=== PATIENT | male | born 1950 | race Caucasian/White ===

== ENCOUNTER 2018-11-18 07:28 | Day surgery (SDC) | payer MEDICARE, OTHER ==
[~2018-11-18] VITALS: Ht 165.1 cm; Wt 79.5 kg
[~2018-11-18 07:28] MED LIST: ACET325; ALPR.25; ALPR.25 PO; DULO30; DULO60 PO; FISH OIL 1,2001 EACH PO; Fish Oil 10001000 MG; LEVO-T50 MCG; LEVSOD50 PO; LOSA25; LOSA25 PO; METO100ER; METO100ER PO; Simvastatin20 MG; Simvastatin20 MG PO; Toprol Xl50 MG PO; WARF2; WARF2 PO
[2018-11-18] MEDS ORDERED: METF500C PO (08:25)
--- NOTE | 2018-11-18 11:27 | NUR ---
11/18/18 Madelaine Bueno PATIENT HAS REMAINED HYPOTENSIVE, NS RUNNING W/O HOB FLAT WITH BP 89/55. NOW UP TO 103/59. PATIENT REMAINS AWAKE ALERT RESP UNLABORED, DENIES PAIN OR NAUSEA.
--- NOTE | 2018-11-18 12:09 | NUR ---
11/18/18 Fabiola8 Melanie Sadler PT TRANSFERED FROM BED TO CHAIR WELL WITH STAND BY ASSIST. PT DENIES ANY PAIN. VS WNL. PT TOLERATING SNACKS WELL. FAMILY AT CHAIR SIDE. WILL COTINUE TO MONITOR PT.
== END 2018-11-18 12:32 | disposition home or self-care (01) ==
LOC: ORSCSDS 07:28
PROVIDERS: Orthopaedic Surgery
PROC: 0LN70ZZ Release Right Hand Tendon, Open Approach (ICD-10-PCS; principal; 2018-11-18 09:00)
PROC: 0JNJ0ZZ Release Right Hand Subcutaneous Tissue and Fascia, Open Approach (ICD-10-PCS; principal; 2018-11-18 09:00)
DX: M72.0 Palmar fascial fibromatosis [Dupuytren] (principal); I10 Essential (primary) hypertension; E11.9 Type 2 diabetes mellitus without complications; I48.91 Unspecified atrial fibrillation; Z79.01 Long term (current) use of anticoagulants; F41.9 Anxiety disorder, unspecified; Z79.899 Other long term (current) drug therapy
CPT/HCPCS: 82947; 88304; J0690; J1100; J2250; J2370; J2405; J3010; J7120

== ENCOUNTER 2019-01-06 10:27 | Inpatient (IN) | payer MEDICARE, OTHER ==
[~2019-01-06] VITALS: Ht 162.6 cm; Wt 81.4 kg
[~2019-01-06 10:27] MED LIST changes: +METF500C PO
--- NOTE | 2019-01-06 15:50 | NUR ---
PT ARRIVAL: PT ARRIVED VIA BED. REC'D REPORT FROM YANELY BAÑUELOS. PT IS NOT CURRENTLY ON ANY SEDATION. NO PURPOSEFUL MOVEMENT SEEN. PT HAS AMIODARONE GTT AT 1MG/MIN AND LEVOPHED @ 20MCG/MIN. PUPILS 5MM, NON-REACTIVE ON RT SIDE, MINIMAL ACCOMODATION ON THE LT SIDE. LUNGS CLEAR BILATERALLY. 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 VENT SETTINGS: AC-24, TV-500, P-5, [id number]%. 02 SATS >90%. HR REGULAR, SB-50'S RANGE. BALLON PUMP IN PLACE, ON 1:1 TIMING WITH GOOD WAVEFORM IN RT FEMORAL. ARTERIAL LINE IN RT RADIAL, ZERO'D W/GOOD WAVEFORM. PT HAS [address] TO LT FEMORAL WITH AMIODARONE/LEVOPHED INFUSING AT THIS TIME. PT CONTINUES TO BE HYPOTENSIVE WITH MAPS IN THE 40'S RANGE, WILL START EPI GTT ONCE IT ARRIVES. WILL BE PLACING PICC LINE FOR ADD'L ACCESS FOR EPI/LEVO GTT. ABD IS SOFT/ROUND/NON-TENDER WITH HYPOACTIVE BT'S X4 QAUDS. NO NORRIS PRESENT, NO URINE OUTPUT AT THIS TIME. -PT REMAINS FULL CODE STATUS PER PT'S . -PT'S UPDATED WITH PT'S STATUS.
[2019-01-06 16:45] LABS: BASOPHILS ABSOLUTE AUTO 0.16 K/mm3 (0.00-0.23); BASOPHILS PERCENT AUTO 1 % (0-2); EOSINOPHILS ABSOLUTE AUTO 0.12 K/mm3 (0.00-0.68); EOSINOPHILS PERCENT AUTO 1 % (0-6); Hematocrit 40.6 % (37.0-53.0); Hemoglobin 12.7 g/dL (13.5-17.5); IMMATURE GRAN ABSOLUTE AUTO 0.99 K/mm3 (0.00-0.10); IMMATURE GRAN PERCENT AUTO 4 % (0-1); LYMPHOCYTES ABSOLUTE AUTO 4.57 K/mm3 (0.84-5.20); LYMPHOCYTES PERCENT AUTO 19 % (21-46); MONOCYTES PERCENT AUTO 2 % (4-13); Mean Corpuscular HGB 31.6 pg (26.0-34.0); Mean Corpuscular HGB Conc 31.3 g/dL (31.5-36.5); Mean Platelet Volume 9.7 fL (9.1-12.4); NEUTROPHILS ABSOLUTE AUTO 17.89 K/mm3 (1.96-9.15); NEUTROPHILS PERCENT AUTO 74 % (41-73); NRBC ABSOLUTE 0.03 K/mm3 (0.00-0.02); NRBC Auto 0.1 /100 WBC (0.0-0.2); Platelet Count 125 K/mm3 (150-400); RDW Coefficient Variation 13.2 % (11.7-14.2); RDW Standard Deviation 49.7 fL (35.1-46.3); Red Blood Cell Count 4.02 M/mm3 (4.30-5.90); White Blood Cell Count 24.13 K/mm3 (4.00-11.30)
--- NOTE | 2019-01-06 16:45 | NUR ---
PETE GALLEGOS IN TO ASSESS PT. AWAITING CXR AND ABG TO BE DONE. CALLED RADIOLOGY FOR CXR AND RT FOR ABG.
[2019-01-06 16:47] LABS: Mean Corpuscular Volume 101 fL (80-100)
[2019-01-06 17:04] LABS: PCO2 Arterial 35.8 mmHg (35-45); PO2 Arterial 229 mmHg (80-100); pH Blood Arterial 7.19 (7.35-7.45)
[2019-01-06 17:15] LABS: International Normalized Ratio 1.51; Prothrombin Time Results 15.4 Sec (9.7-11.5)
--- NOTE | 2019-01-06 17:30 | NUR ---
PT STARTED DECEREBRATE POSTURING IN BILATERAL UE'S.
[2019-01-06 17:59] LABS: Albumin, Blood 2.8 g/dL (3.4-5.0); Albumin/Globulin Ratio 0.9 (0.8-1.8); Bilirubin, Total 0.6 mg/dL (0.1-1.0); Calcium, Blood 9.1 mg/dL (8.5-10.1); Creatinine, Blood 1.31 mg/dL (0.60-1.20); Magnesium, Blood 4.6 mg/dL (1.6-2.4); Potassium, Blood 5.3 mmol/L (3.5-5.5); Total Protein, Blood 5.8 g/dL (6.4-8.2)
--- NOTE | 2019-01-06 18:00 | NUR ---
NORRIS CATHETER PROVED TO BE DIFFICULT TO PLACE. THIS RN ABLE TO PLACE A 16F COUDE CATHETER. PT DRAINED A SMALL AMT OF CLEAR, YELLOW URINE TO GRAVITY. PT APPEARED TO START POSTURING IN BILATERAL LE'S, HOWEVER, PT WOULD DRAW RT KNEE FARTHER UP THAN LT. LE'S PLACED IN BILATERAL RESTRAINTS AT THIS TIME TO PROTECT BALLON PUMP AND SHEATH SITES.
--- NOTE | 2019-01-06 18:15 | NUR ---
DR FAIR AT THE BEDSIDE. UPDATED HIM ON PT'S STATUS. REPORTED THAT BOTH LEVOPHED AND AMIODARONE ARE OFF AND PT IS NOW HYPERTENSIVE. STARTED PROPOFOL FOR COMFORT AND WILL MONITOR IF THIS HELPS WITH THE HTN, IF NOT, WILL CALL DR FAIR FOR FURTHER TX ORDERS.
[2019-01-06 18:29] LABS: Phosphorus, Blood 9.2 mg/dL (2.5-4.9); Troponin I 19.3 ng/mL (0.000-0.040)
--- NOTE | 2019-01-06 18:50 | NUR ---
Spiritual Care: I was present with pt's spouse, Edna, throughout code blue, medical interventions, and transfer to ICU. She was appropriately tearful and panicked. Per Edna, "We were just supposed to have this little proceedure don and go home a few hours later." This event took her completely by surprise. I provided calm presence, prayer, and ran back and forth from waiting area to monitor area for updates. I was present when physicians met with Edna. She was told of Raul's serious prognosis in detail. That said, I suspect Edna did not retain much information after being told that Raul's heart "was beating on its own and his blood pressure is better." I suspect she is understandably in shock, and may benefit from on-going, clear clinical updates/potential outcomes. Edna is not active in her [employer] nelson, but seemed calmed by prayer and spiritual encouragement. Raul is not jew at all. Their sons are on their way from [place], [place] and should be arriving soon. Enda tells me they are good support. Break Off Worker Services will remain available.
--- NOTE | 2019-01-06 19:00 | NUR ---
SHIFT SUMMARY/REPORTED OFF: PT IS AT THIS TIME FREQUENTLY DECEREBRATE POSTURING IN UE'S AND DRAWING UP BILATERAL KNEES AT THE SAME TIME, OTHERWISE, NO PURPOSEFUL MOVEMENT. PT IN 4 POINT RESTRAINTS TO PROTECT VITAL LINES. PUPILS UNCHANGED FROM PRIOR NOTED. CRITICAL LABS REPORTED TO DR CASAS PER ALEE, RN. WILL CHECK VBG AT THE SAME TIME LACTIC ACID REFLUX IS DONE. REMAINS AT THE BEDSIDE AND IS AWARE OF THE SEVERITY OF PT'S CONDITION BUT REMAINS HOPEFUL AT THIS TIME. PT BECAME HYPERTENSIVE QUICKLY WITH USE OF LEVOPHED/EPI AND REMAINED HYPERTENSIVE, EVEN AFTER THESE WERE PLACED ON STANDBY. PT STARTED ON PROPOFOL IN CASE HTN R/T PAIN/DISCOMFORT. PT QUICKLY BECAME HYPOTENSIVE AND REQUIRED EPI GTT TO BE RESTARTED AT THIS TIME AND INCREASED TO 5MCG/MIN, TO KEEP MAP >[address] FA[address]. BALLON PUMP REMAINS IN RT FEMORAL WITH 1:1 TIMING (SEE FLOWSHEET). PICC LINE IN THE LT UA AND 2 FEMORAL SHEATH SITES ARE STARTING TO OOZ BLOOD. NORRIS CATH ONLY DRAINED A MINIMAL AMT OF CLEAR YELLOW URINE SINCE PLACEMENT. CONTINUE TO MONITOR R/T DIFFICULT PLACEMENT. NO BM FOR THIS RN.
--- NOTE | 2019-01-06 19:15 | NUR ---
ASSESSMENT PT INTUBATED AND ON [facility] V[facility]. SEDATED WITH PROPOFOL AT 15 MCQ/KG/MIN. VENT SETTINGS AC 24 TV 500 PEEP 5 FIO2 70%. LUNGS COARSE AND DECREASED IN THE BASES. RT SUCTIONED SCANT AMT THICK BLOODY SECRECTIONS VIA ET TUBE. HEART RATE REGULAR IN THE 60'S. PT ON IABP VIA RIGHT GROIN ACCESS. RIGHT GROIN STABLE WITH DRSG INTACT. BP STABLE ON EPI TITRATE TO KEEP MAP ABOVE 65. CURRENTLY EPI AT 5 MCQ/MIN. LEVOPHED ON STANDBY. LEFT GROIN WITH TWO VENOUS SHEATS WITH HEPARIN AT 12 UNITS/KG/HR AND LEVOPHED ON ONE WITH AMIODARONE AT 1 MG/MIN AND EPINEPHRINE AT 5MCQ/MIN. SITE STABLE WITH DRSG INTACT. SMALL ABOUT OF OOZING AT SITE. PICC LINE TO LEFT UPPER ARM WITH PROPOFOL AT 15 MCK/KG/MIN AND NS AT 10 ML/HR. SITE WITH BLOODY DRAINAGE AND PRESURE DRSG INTACT. NORRIS CATH PATENT DRAINING CLEAR YELLOW URINE. OG CLAMPED. PEDAL PULSES VERY FAINT VIA DOPPLER. FEET COOL. SOFT RESTRAINTS ON TIMES 4. PT POSTERING. PUPILS VERY SLUGGLISH. AND FRIEND AT BEDSIDE
[2019-01-06 20:33] LABS: Source, Urine Catheter
[2019-01-06 20:38] LABS: Appearance, Urine Hazy (Clear); Bilirubin, Urine Neg (Neg); Blood, Urine 4+ (Neg); Color, Urine Yellow (P-Yellow); Glucose Qualitative, Urine Neg (Neg); Ketones, Urine Neg (Neg); Leukocyte Esterase, Urine Neg (Neg); Nitrite, Urine Neg (Neg); Protein, Urine 3+ (Neg); Urobilinogen, Urine NORM (Normal)
[2019-01-06 20:51] LABS: Squamous Epithelial Cells Mod /hpf (Few)
[2019-01-06 20:52] LABS: Amorphous Mod (0-Heavy); Bacteria Few /hpf; Granular Casts 0-2 /lpf (0); Mucus Light (0-Heavy)
[2019-01-06 21:31] LABS: Base Excess Venous -10.6 mmol/L; Bicarbonate Venous 15.4 mmol/L (24.0-30.0); PCO2 Venous 43.3 mmHg (38-42); PO2 Venous 25.1 mmHg (38-42); pH Blood Venous 7.21 (7.34-7.37)
--- NOTE | 2019-01-06 21:44 | NUR ---
CALL TO MD'S CALL TO DR DAILY REGARDING AMIODARONE GTT. ORDERS TO DECREASE AMIODARONE TO 0.5 MG/MIN FOR [address] CASAS REGARDING VBG PH 7.21, NO NEW ORDERS.
--- NOTE | 2019-01-06 22:07 | NUR ---
FAMILY/ HEPARIN FAMILY WENT HOME FOR THE NIGHT. CRITIACAL PTT 103.3 CALLED TO NAZIA POOLE IN PHARMACY, WAITING FOR ORDERS. RECEIVED CRITICAL LACTIC ACID WILL NOTIFY DR CASAS
--- NOTE | 2019-01-06 22:25 | NUR ---
CRITICAL LAB DR CASAS NOTIFIED REGARDING LACTIC ACID 10.2 AND POOR URINE OUTPUT. NO NEW ORDER NOW EXCEPT REPEAT LACTIC ACID IN AM. TITRATE EPI AND LEVOPHED TO KEEP MAP ABOVE 65
--- NOTE | 2019-01-07 00:01 | NUR ---
REASSESSMENT PT CONT INTUBATED AND ON [facility] VENT. CURRENT VENT SETTINGS AC 24 TV 500 PEEP 5 FIO2 55%. LUNGS CLEAR BUT DECREASED IN THE BASES. NO SECRECTIONS SUCTIONED VIA ET TUBE. HEART RATE 66, BP STABLE WITH EPI AT 5 MCQ/MIN. RIGHT GROIN IABP SITE STABLE WITH DRSG INTACT. LEFT GROIN WITH VENOUS SHEATHS TIMES TWO STABLE, SCANT AMT OF OLD DRAINAGE NOTED. FEET COOL. PEDAL PULES VERY WEAK VIA DOPPLER. POSTERING CONT, INCREASES WITH STIMULI. YAWNS WITH ORAL CARE. NOTED FOLLOWING INSTRUCTIONS. ONLY 42 ML URINE OUTPUT SINCE 1900. SCLERAL EDEMA NOTED.
--- NOTE | 2019-01-07 01:27 | NUR ---
CALL TO DR FAIR CALLED DR FAIR REGARDING CRITICAL TROPONIN OF 143 AND 42 ML OF URINE OUT SINCE 190. REVIEWED BP AND MEDICATIONS. RECEIVED ORDER TO TITRATE EPI DOWN TO KEEP SBP ABOUT 120. EPI DECREASED TO 4 MCQ/MIN. RT DECREASED FIO2 DOWN TO 50%
[2019-01-07 03:09] LABS: BASOPHILS ABSOLUTE AUTO 0.06 K/mm3 (0.00-0.23); BASOPHILS PERCENT AUTO 0 % (0-2); EOSINOPHILS PERCENT AUTO 0 % (0-6); Hematocrit 34.5 % (37.0-53.0); Hemoglobin 11.2 g/dL (13.5-17.5); IMMATURE GRAN ABSOLUTE AUTO 0.18 K/mm3 (0.00-0.10); IMMATURE GRAN PERCENT AUTO 1 % (0-1); LYMPHOCYTES ABSOLUTE AUTO 1.57 K/mm3 (0.84-5.20); LYMPHOCYTES PERCENT AUTO 7 % (21-46); MONOCYTES ABSOLUTE AUTO 1.57 K/mm3 (0.16-1.47); MONOCYTES PERCENT AUTO 7 % (4-13); Mean Corpuscular HGB 31.6 pg (26.0-34.0); Mean Corpuscular HGB Conc 32.5 g/dL (31.5-36.5); Mean Platelet Volume 9.6 fL (9.1-12.4); NEUTROPHILS ABSOLUTE AUTO 18.54 K/mm3 (1.96-9.15); NEUTROPHILS PERCENT AUTO 85 % (41-73); Platelet Count 145 K/mm3 (150-400); RDW Coefficient Variation 13.5 % (11.7-14.2); RDW Standard Deviation 48.7 fL (35.1-46.3); Red Blood Cell Count 3.54 M/mm3 (4.30-5.90); White Blood Cell Count 21.92 K/mm3 (4.00-11.30)
[2019-01-07 03:12] LABS: Mean Corpuscular Volume 98 fL (80-100)
[2019-01-07 03:33] LABS: Magnesium, Blood 3.4 mg/dL (1.6-2.4)
[2019-01-07 03:38] LABS: Thyroid Stimulating Hormone 2.7 uIU/mL (0.360-4.800)
[2019-01-07 03:46] LABS: Albumin, Blood 2.6 g/dL (3.4-5.0); Bilirubin, Total 0.4 mg/dL (0.1-1.0); Bun/Creatinine Ratio 10.9 (12.0-20.0); Calcium, Blood 8.1 mg/dL (8.5-10.1); Creatinine, Blood 2.58 mg/dL (0.60-1.20); Globulin, Blood 2.6 g/dL (2.2-4.0); Potassium, Blood 3.7 mmol/L (3.5-5.5); Total Protein, Blood 5.2 g/dL (6.4-8.2)
[2019-01-07 03:48] LABS: Phosphorus, Blood 2.7 mg/dL (2.5-4.9)
--- NOTE | 2019-01-07 04:09 | NUR ---
REASSESSMENT PT CONT INTUBATED AND MECH VENTED. VENT SETTINGS CURRENTLY AC 24 TV 500 PEEP 5 FIO2 45%. LUNGS CLEAR BUT DECREASED IN BASES. HEART RATE 60'S. BP STABLE ON EPI AT 5 MCQ/MIN. TITRATING EPI DOWN TO KEEP SBP AROUND 120. NO URINE OUTPUT. RIGHT AND LEFT GROIN SITES STABLE. OOZING AT PICC SITE AFTER DRSG CHANGED.
[2019-01-07 04:40] LABS: PCO2 Arterial 21.2 mmHg (35-45); PO2 Arterial 91.4 mmHg (80-100); pH Blood Arterial 7.45 (7.35-7.45)
--- NOTE | 2019-01-07 05:58 | NUR ---
SHIFT SUMMARY PT REMAINS INTUBATED AND ON [facility] VENT. FIO2 TITRATED DOWN DURING THE NIGHT FROM 70% TO CURRENTLY AT 40%. SPO2 REMAINS 98-100%. CURRENT VENT SETTINGS AC 24 TV 500 PEEP 5 FIO2 40%. LUNGS STARTED COARSE BUT HAVE IMPROVED TO CLEAR BUT DECREASED IN THE BASES. SUCTIONED SCANT AMT SECRECTIONS VIA ET TUBE. HEART RATE REMAINS IN THE 60'S. PT WITH IABP PUMP TO RIGHT FEMORAL. IABP 1:1 TIMING. TITRATING EPI AND LEVOPHED TO KEEP SBP AROUND 120 AND MAP >[address] FAIR. CURRENTLY EPI AT 5 MCQ/MIN AND LEVOPHED OFF. LEFT FEMORAL WITH TWO VENOUS SHEATHS WITH AMIODARONE AT 0.5 MG/MIN. HEPARIN OFF AT THIS TIME AWAITING RESULTS OF PTT. POOR URINE OUTPUT 42 ML THROUGHOUT THE NIGHT, REPORTED TO DR CASAS AND DR FAIR. PICC LINE TO LEFT UPPER ARM DRSG CHANGED DUE TO BLEEDING, NEW DRSG WITH OOZING NOTED. BLOOD GLUCOSE Q6HR, COVERED WITH HUMALOG. REPORT TO ON COMING NURSE
--- NOTE | 2019-01-07 06:06 | NUR ---
SHIFT SUMMARY CONT PUPILS REMAIN SLUGGLISH BUT REACTIVE. PT MOVING RIGHT AND LEFT LOWER EXT INDEPENTLY AT TIMES. CONT TO HAVE DECEREBRATE POSTURING WITH ORAL CARE OR SUCTIONING. SCLERAL EDEMA NOTED. RESTRAINTS REMOVED. PT HAD SMALL BROWN PASTY STOOL DURING THE NIGHT.
--- NOTE | 2019-01-07 10:26 | NUR ---
0700-ASSUMED CARE OF PT. PT IS INTUBATED AND VENTED. PUPILS ARE NON-REACTIVE. NOT FOLLOWING COMMANDS. NOT OPENING EYES TO VOICE OR VERBAL STIMULI. BABINSKI REFLEX PRESENT. PT DID BEND HIS KNESS WHEN BABINSKI REFLEX ASSESSMENT WAS DONE. PT IS ON EPINEPHRINE @ 3 MCG/KG/MIN. LEVOPHED ON STANDY BY AT THIS TIME. AMIODARONE DRIP @ 0.5MG/MIN. AFEBRILE. EPINEPHRINE DRIP @ 3MCG/KG/MIN. 0709-DECREASED EPI DRIP TO 2MCG/KG/MIN. RESTARTED LEVOPHED DRIP@ 2MCG/KG/MIN 0745-DR. BHATIA AT BEDSIDE UPDATED HIM OF PT'S STATUS. 2 BEAT PAUSES WERE NOTED ON A-LINE AND BALLOON PUMP NO PAUSES NOTED ON RHYTHM STRIP. DR. BHATIA WAS NOTIFIED WITH THIS. TURNED OFF SEDATION AT THIS TIME. 0754-HEPARIN DRIP WAS RESTARTED AT THIS TIME @ 8UNITS/KG/HR. AMIODARONE DRIP WAS ALSO TURNED OFF PER DR. BHATIA. 0756-BALLOON PUMP WAS PLACED ON 2:[address] BHATIA. 0825-BALLOON PUMP WAS PLACED BACK TO 1:[address] BHATIA. HEPARIN DRIP WAS STOPPED PER DR. BHATIA. 0909-TITRATED LEVOPHED TO 1MCG/KG/MIN 0915-LEVOPHED DECREASED TO 0.5MCG/KG/MIN. 0936-TURNED OFF LEVOPHED AT THIS TIME. 1000-PT'S SON AT BEDSIDE. UPDATED THEM OF PT'S STATUS. 1017-SBP HAS BEEN FROM 160S-190S LEVOPHED AND EPI DRIP HAS BEEN OFF SINCE [address] CASAS IS AWARE OF THE ELEVATED SBP. PT WAS SEEN BY DR. CASAS AND DR. JOYNER. FAMILY AT BEDSIDE. DR. JOYNER SPOKE WITH THEM REGARDING P'TS PROGNOSIS.
--- NOTE | 2019-01-07 11:57 | NUR ---
Talked with Patient's 's son, in hallway and inquired how he and the family are holding up. Son stated that they are doing as good as can be expected under the circumstances and that they were all doing the best they can with what they are given at the moment. I normalized his experience and provided a calming presence. I will continue to remain available to patient and family.
--- NOTE | 2019-01-07 14:06 | NUR ---
Checked back in with patient's family. I talked with spouse Edna and sons Erasmo and Ankit. They all appeared to be quit hopeful and encouraged by the progress the patient is making this day. Edna was very complimentary of Apartment Assistant Manageryovana Travis, and so appreciated the time and care she gave to her in a very difficult time. I normalized the family experience, provided emotional support and a calming presence. Family responded well. I continue to remain available to patient and family.
[2019-01-07 14:07] LABS: PO2 Arterial 60.8 mmHg (80-100); pH Blood Arterial 7.52 (7.35-7.45)
[2019-01-07 14:08] LABS: PCO2 Arterial 18.9 mmHg (35-45)
--- NOTE | 2019-01-07 14:27 | NUR ---
1045-DR. BHATIA AT BEDSIDE. HE DISCONTINUED IABP AND APPLIED MANUAL PRESSURE. 1135-HEMEOSTATSIS ACHIEVED AT THIS TIME. FEM STOP AT R GROIN BUT NOT ACTIVATED. 1138- VENOUS SHEATH WAS DISCONTINUED BY DR. BHATIA WELL. THIS NURSE APPLIED 7 MINUTES OF PRESSURE TO THE VENOUS SIGHT. R GROIN STILL HAS FEM STOP IN PLACE AND NOT ACTIVATED. PULSES ARE DOPPLED. TOES & FINGERS ARE COOL TO TOUCH AND CAP REFILL NO CHANGE FROM INITIAL ASSESSMENT >3SECS SLIGHTLY PURPLE LOOKING. DR. BHATIA AWARE OF COLOR OF TOES.FACE LOOKS PINK COMPARED TO THIS MORNING. PT STARTED TO OPEN HIS EYES AT TIMES AND OPENS EYES TO VOICE AT TIMES. STILL NOT FOLLOWING COMMANDS. PT GRIMACES TO SUCTION. CORNEAL REFLEX PRESENT. 1305-TOOK THE UNACTIVATED FEMSTOP. PULSES STILL PRESENT NOTED BY DOPPLER. TOES COOLER HAS NOT CHANGED STILL THE SAME. WARM BLANKET GIVEN TO PATIENT. AFEBRILE. PT IS OPENING HIS EYES INTERMITTENTLY BUT NOT FOLLOWING COMMANDS. 1400-DR. CASAS AT BEDSIDE. UPDATED HER OF PT'S STATUS. 1405- DR. FAIR AT BEDSIDE, UPDATED HIM OF PT'S STATUS. HE DISCONTINUED ART- LINE AT THIS TIME. PLACE TR BAND WITH 8CC AIR INFLATED TO THE BALOON. WATCH FOR SIGNS OF BLEEDING OR HEMATOMA. ARM BAND IN PLACE. PULSES ARE PALPABLE.
--- NOTE | 2019-01-07 14:45 | NUR ---
DR. JOYNER AT BEDSIDE. UPDATED HIM OF PT'S STATUS.
--- NOTE | 2019-01-07 15:50 | NUR ---
1510-PT STARTED TO BE BLEEDING FROM THE R GROIN IABP ACCESS SITE. THIS WAS AFTER PT WAS COUGHING HARD. APPLIED MANUAL PRESSURE TO THE SITE. NOTIFIED DR. BHATIA HE ORDERED TO DO 20 MIN MANUAL IF BLEEDING DOES NOT STOPPED. THEN CALL HIM AGAIN. 1530-HEMEOSTASIS ACHIEVED. TOTAL MANUAL PRESSURE APPLIED WAS 20MINS. 1534-DECREASED 2 CC AIR FROM TR BAND. DR. BHATIA CALLED BACK REGARDING R GROIN BLEEDING. HE WAS NOTIFIED HEMEOSTASIS WAS ACHIEVED AT 20 MINS. CONITNUED TO MONITOR R GROIN. LEFT GROIN ACCESS SITE STABLE. 1550-PT'S CHERYL AT BEDSIDE. UPDATED HER OF PT'S STATUS.
--- NOTE | 2019-01-07 17:04 | NUR ---
1651-NOTED R FINGERS ARE PALE AND COLD UNABLE TO GET O2 SATURATION. TR BAND IS COMPLETELY DEFLATED. REMOVED TR BAND AND REPLACED WITH CLEAR DRESSING. NO BLEEDING NOTED TO THE SITE. BRUISING NOTED. NO PULSE NOTED TO RADIAL ARTERY. NOTIFIED DR. BHATIA IMMEDIATELY. ORDERS RECEIVED. 1714- NOTICED R HAND FINGERS ARE NOW FROM PALE, WHITE TO PINK COLOR WITH O2 SATURATION CURRENTLY @ 96%
--- NOTE | 2019-01-07 17:23 | NUR ---
PT HAD AN EPISODE OF VOMITING, OG TUBE WAS CONNECTED TO LOW INTERMITTENT SUCTION. NOTED TO HAVE BROWN STOMACH CONTENTS CAME OUT. WILL HOLD OFF ON STARTING TUBE FEEDING AT THIS TIME.
--- NOTE | 2019-01-07 17:45 | NUR ---
DR. BHATIA CAME BY TO SEE THE PATIENT. UPDATED HIM OF PT'S R HAND CONDITION. HE CHECKED PT'S R HAND AND THEN R GROIN SITE. HE STATED TO HOLD OFF ON HEPARIN DRIP AT THIS TIME.
--- NOTE | 2019-01-07 19:15 | NUR ---
ASSUMED CARE OF PT PT INTUBATED, VENT SETTINGS AC 18/450/5/35%. OGT TO LIS. PT OPENS EYES TO PAINFUL STIMULUS BUT FAILS TO FOLLOW COMMANDS OR RESPOND TO VERBAL STIMULUS. NORRIS PATENT AND DRAINING PALE YELLOW URINE. FEMSTOP IN PLACE AND CLEAR DRESSING OVER RIGHT FEMORAL ACCESS SITE. HEMATOMA AND SIGNIFICANT BRUISING NOTED, PER DAYSHIFT NURSE NO CHANGE SINCE DR. FAIR LAST SAW IT. LEFT FEMORAL GROIN ACCESS SITE SOFT WITH CLEAR DRESSING, NO EVIDENCE OF BLEEDING. RIGHT RADIAL ACCESS SOFT WITH CLEAR DRESSING AND BRUISING NOTED. PEDAL PULSES PALPATED AND DOPPLER USED BILATERALLY. RIGHT RADIAL PULSE LOCATED WITH DOPPLER. PER DAYSHIFT NURSE PT'S HAS PERIODS OF POOR PERFUSION. PT'S FAMILY AT BEDSIDE. SEE FULL SHIFT ASSESSMENT. RADIAL PULSE NO EVIDENCE OF CURRENT BLEEDING
--- NOTE | 2019-01-07 19:55 | NUR ---
1846-PT STARTED TO BLEED TO R GROIN AGAIN. APPLIED PRESSURE AT THIS TIME. DR. BHATIA WAS NOTIFIED. SPOKE WITH DR. CASAS @ 1829 REGARDING PT'S R FINGERS WHICH STARTED TO BE LOOKING PALE AGAIN. SHE STATED TO RESTART THE HEPARIN DRIP. 1906-PLACED FEM STOP TO R GROIN AT THIS TIME. PULSES PRESENT BY DOPPLER WHILE FEM STOP IS ACTIVATED. 1919-DR. BHATIA AT BEDSIDE. ASSESSED R HAND AND R GROIN. HE STATED TO KEEP FEM STOP OVERNIGHT AND START HEPARIN DRIP @ 8 UNITS/KG/HR WEIGHT DOSE 79KG.
[2019-01-08 04:41] LABS: Base Excess Venous -5.4 mmol/L; Bicarbonate Venous 19.9 mmol/L (24.0-30.0); PCO2 Venous 32.6 mmHg (38-42); PO2 Venous 31.5 mmHg (38-42); pH Blood Venous 7.39 (7.34-7.37)
[2019-01-08 04:48] LABS: BASOPHILS ABSOLUTE AUTO 0.05 K/mm3 (0.00-0.23); BASOPHILS PERCENT AUTO 0 % (0-2); EOSINOPHILS PERCENT AUTO 0 % (0-6); Hematocrit 27.7 % (37.0-53.0); Hemoglobin 9.3 g/dL (13.5-17.5); IMMATURE GRAN ABSOLUTE AUTO 0.11 K/mm3 (0.00-0.10); IMMATURE GRAN PERCENT AUTO 1 % (0-1); LYMPHOCYTES ABSOLUTE AUTO 1.49 K/mm3 (0.84-5.20); LYMPHOCYTES PERCENT AUTO 7 % (21-46); MONOCYTES ABSOLUTE AUTO 1.51 K/mm3 (0.16-1.47); MONOCYTES PERCENT AUTO 7 % (4-13); Mean Corpuscular HGB Conc 33.6 g/dL (31.5-36.5); Mean Platelet Volume 11.2 fL (9.1-12.4); NEUTROPHILS ABSOLUTE AUTO 18.14 K/mm3 (1.96-9.15); NEUTROPHILS PERCENT AUTO 85 % (41-73); NRBC ABSOLUTE 0.06 K/mm3 (0.00-0.02); NRBC Auto 0.3 /100 WBC (0.0-0.2); Platelet Count 117 K/mm3 (150-400); RDW Standard Deviation 49.1 fL (35.1-46.3); Red Blood Cell Count 2.91 M/mm3 (4.30-5.90)
[2019-01-08 05:12] LABS: Albumin, Blood 2.5 g/dL (3.4-5.0); Albumin/Globulin Ratio 0.9 (0.8-1.8); Bilirubin, Total 0.5 mg/dL (0.1-1.0); Calcium, Blood 7.4 mg/dL (8.5-10.1); Creatinine, Blood 4.5 mg/dL (0.60-1.20); Globulin, Blood 2.9 g/dL (2.2-4.0); Magnesium, Blood 3.2 mg/dL (1.6-2.4); Potassium, Blood 5.1 mmol/L (3.5-5.5); Total Protein, Blood 5.4 g/dL (6.4-8.2)
[2019-01-08 05:16] LABS: Mean Corpuscular Volume 95 fL (80-100)
--- NOTE | 2019-01-08 05:50 | NUR ---
PER DR FAIR ORDER TO STOP HEPARIN, TAKE PRESSURE OUT OF FEMSTOP, AND START NS 100 ML/HR FOR 1 BAG.
[2019-01-08 05:52] LABS: Phosphorus, Blood 6.4 mg/dL (2.5-4.9)
--- NOTE | 2019-01-08 06:26 | NUR ---
SHIFT SUMMARY PT STABLE OVERNIGHT. NO NEW OR WORSENING BLEEDING NOTICED AT FEMORAL OR RADIAL ACCESS SITES. PEDAL PULSES PALPABLE, RADIAL PULSE FOUND VIA DOPPLER. PT OPENS EYES BUT FAILS TO TRACK OR FOLLOW COMMANDS. 500 ML BROWN/GREEN SECRETIONS OUT OF OGT. PT HAD 200 ML URINARY OUTPUT. WILL REPORT TO DAYSHIFT NURSE.
--- NOTE | 2019-01-08 09:34 | NUR ---
PT'S SON/MISHA IN THIS AM ALONG WITH DR MALONE WHOM UPDATED SON. PT SEDATED ON FENT 25MCG/HR AND VERSED GTT AT 1MG/HR FOR MECH VENT. PT MOVES ALL EXTREMETIES WITHOUT PURPOSE. AT ONE POINT DURING ORAL CARE PT APPEARED TO BE HAVING DECORTICATE POSTURING. PT GAGS, SWALLOWS, PROTECTS EYES BY BLINKING TO TOUCH, ABSENT BABINSKI REFLEX, PT WITHDRAWALS NORMALLY TO PLANTAR STIMULI. PUPILS 3/3MM VERY SLUGGISH;ALMOST ABSENT. PT CLAMMY AND DIAPHORETIC, PALE. POOR CAP REFILL TO ALL EXTREMETIES. RIGHT GROIN WITH LARGE HEMATOMA THAT EXTENDS INTO SCROTUM, AREA MARKED W PEN, SLIGHTLY OVER SOME OF THE LINE AT RIGHT HIP/GROIN; BUT NO CHANGE FROM THIS AM WHEN REVIEWED W CHRISTINE SPRAGUE.
--- NOTE | 2019-01-08 11:05 | NUR ---
DR CASAS IN TO SPEAK W PT'S SON'S AND TO ASSESS PT. VERSED DC'D. CT SCAN OF HEAD SCHEDULED FOR 1119
--- NOTE | 2019-01-08 12:18 | NUR ---
PT TO CT FOR CT OF HEAD; TOLERATED WELL. FENT INCREASED TO 50MCG CONT RATE FOR STACKING ON VENT PER DR CASAS. WHILE TURNING PT UPON AT 1200 PT BEGAN DEMONSTRATING DECORIBRATE POSTURING. DR CASAS AT BEDSIDE. VERSED GTT RESTARTED AT 2MG/HR, 2MG IVP OF VERSED GIVEN WELL; PT RESPONDED WELL TO THIS, AND NOW IS IN RELAXED SLEEPING STATE.
--- NOTE | 2019-01-08 12:27 | NUR ---
Initial Visit: Palliative Care Consult for Goals of Care. Pt is being attended to by his nurse Althea. Pt is intubated and Althea reports Pt is posturing, was seizing, and has no purposeful movement for quite some time. Althea reports family is in ICU waiting room. Pt's Edna and Pt's children are present in the waiting room. Engaged in therapeutic conversation regarding goals of care. Listened as Edna expressed her feelings towards wanting to do everything for Pt. Edna tearful at times during visit. Listened as Pt's children expressed their views of Pt's situation. Educated and children on Pt's current condition and prognosis. Children also tearful at times during visit. Offered emotion support throughout visit. Discussed code status as well with family. Educated family on risk factors of CPR as well. Family asks about quality of life for Pt if he does happen to improve. Educated on possible outcomes and possible need for 24 hour care. Pt's Edna reports that she knows what decision she will make but would like to know CT results from today and wait for the 72 hour douglas before making any decisions. Family is also agreeable with this. No other concerns reported at this time. Gave "Hard Choices for [place] People" book for family to read. Palliative Care will remain available.
--- NOTE | 2019-01-08 12:38 | NUR ---
PT HYPOTENSIVE WITH MAP AT 52. FENTANYL GTT DECREASED BACK TO 25MCG CONT. RATE; DR CASAS NOTIFIED
--- NOTE | 2019-01-08 12:52 | NUR ---
Late Entry from Initial Visit. Spoke with Dr Franz prior to visiting with family and he reports conversation regarding poor prognosis and code status is appropriate. Pt's will make a decision regarding code status after CT results.
--- NOTE | 2019-01-08 15:50 | NUR ---
TUBE FEEDING TO BE HELD TODAY 2ND TO ABSENT BOWEL TONES AND HIGH OG OUTPUT LAST NIGHT. PICC LINE DRSG CHANGED.
--- NOTE | 2019-01-08 16:49 | NUR ---
PT CONVERTED FROM SINUS RHYTHM W ECTOPY (PAC/PVC) TO AFIB W RATE 90-120. EKG COMPLETED. DR MALONE CALLED AND NOTIFIED. WILL CONTINUE TO MONITOR FOR NOW. WILL NOTIFY DR MALONE IF RATE INCREASES OR PT BECOME CONSIST. HYPOTENSIVE.
--- NOTE | 2019-01-08 17:19 | NUR ---
PT'S FAMILY AT BEDSIDE, UPDATED;INCLUDING NEW AFIB. DR WILKINSON CALLED FOR CONSULT. D51/2 NS TO BE STARTED AT 100CC/HR.
--- NOTE | 2019-01-08 19:22 | NUR ---
FAMILY AT BEDSIDE. BEDSIDE REPORT GIVEN. PT BECAME HYPOTENSIVE DURING REPORT AND REMAINS HYPOTENSIVE AT 67/35 WITH A MAP OF 40. AFIB REMAINS UNCHANGED W RATE 90-120. DR CASAS CALLED/NOTIFIED. ORDERS TO RESTART EPI GTT WHICH NOCT RN IS DOING NOW. FAMILY SAID THEY WOULD CONSIDER DNR STATUS, BUT FOR NOW THE PT REMAINS FULL CODE.
--- NOTE | 2019-01-08 20:48 | NUR ---
ASSUMED CARE OF PT PT SEDATED ON 2 MG/HR VERSED AND 25 MCG/HR FENTANYL. VENT SETTING AC 18/450/5/35%. PT IN UNRESPONSIVE TO VERBAL STIMULI AND FAILS TO FOLLOW COMMANDS BUT WITHDRAWS FROM PAINFUL STIMULI. PT BECAME HYPOTENSIVE AT START OF SHIFT, EPINEPHRINE STARTED PER DR CASAS. HR BETWEEN 70-130'S IRREGULAR. PT'S SKIN IS COOL AND CLAMMY WITH POOR PERFUSION NOTED. PT'S AT BEDSIDE. SEE FULL SHIFT ASSESSMENT.
--- NOTE | 2019-01-08 21:08 | NUR ---
CODE STATUS CHANGE. PT'S FAMILY REQUESTING TO CHANGE PT'S CODE STATUS TO DNR. AUGUSTO NOTIFIED AND STATUS CHANGE TO BE INPUT.
--- NOTE | 2019-01-09 01:22 | NUR ---
PT DEVELOPED WHEEZING THROUGHOUT WITH DIMINISHED IN BASES. DR HILLIARD CONSULTED AND PRN ALBUTEROL UPDRAFT ORDERED.
[2019-01-09 04:18] LABS: Base Excess Venous -7.9 mmol/L; Bicarbonate Venous 18.3 mmol/L (24.0-30.0); PCO2 Venous 34.1 mmHg (38-42); PO2 Venous 51.4 mmHg (38-42); pH Blood Venous 7.33 (7.34-7.37)
[2019-01-09 04:18] LABS: BASOPHILS ABSOLUTE AUTO 0.05 K/mm3 (0.00-0.23); BASOPHILS PERCENT AUTO 0 % (0-2); EOSINOPHILS PERCENT AUTO 0 % (0-6); Hematocrit 21.5 % (37.0-53.0); Hemoglobin 7.1 g/dL (13.5-17.5); IMMATURE GRAN ABSOLUTE AUTO 0.13 K/mm3 (0.00-0.10); IMMATURE GRAN PERCENT AUTO 1 % (0-1); LYMPHOCYTES PERCENT AUTO 6 % (21-46); MONOCYTES ABSOLUTE AUTO 1.37 K/mm3 (0.16-1.47); MONOCYTES PERCENT AUTO 7 % (4-13); Mean Corpuscular HGB 31.7 pg (26.0-34.0); Mean Corpuscular Volume 96 fL (80-100); Mean Platelet Volume 11.1 fL (9.1-12.4); NEUTROPHILS ABSOLUTE AUTO 16.44 K/mm3 (1.96-9.15); NEUTROPHILS PERCENT AUTO 86 % (41-73); NRBC ABSOLUTE 0.02 K/mm3 (0.00-0.02); NRBC Auto 0.1 /100 WBC (0.0-0.2); Platelet Count 99 K/mm3 (150-400); RDW Coefficient Variation 14.4 % (11.7-14.2); RDW Standard Deviation 50.5 fL (35.1-46.3); Red Blood Cell Count 2.24 M/mm3 (4.30-5.90); White Blood Cell Count 19.09 K/mm3 (4.00-11.30)
[2019-01-09 04:37] LABS: Alanine Aminotransfer (ALT/SGP 42 U/L (12-78); Albumin, Blood 2.2 g/dL (3.4-5.0); Albumin/Globulin Ratio 0.8 (0.8-1.8); Alk Phos 50 U/L (50-136); Anion Gap 12 mmol/L (6-16); Aspartate Aminotrans (AST/SGOT 316 U/L (12-37); Bilirubin, Total 0.3 mg/dL (0.1-1.0); Blood Urea Nitrogen 57 mg/dL (8-24); Bun/Creatinine Ratio 10.7 (12.0-20.0); CO2, Blood 19 mmol/L (21-32); Calcium, Blood 7.2 mg/dL (8.5-10.1); Chloride, Blood 105 mmol/L (98-108); Creatinine, Blood 5.33 mg/dL (0.60-1.20); Globulin, Blood 2.8 g/dL (2.2-4.0); Glomerular Filtration Rate 11 (60-); Glucose, Blood 201 mg/dL (70-99); Phosphorus, Blood 4.6 mg/dL (2.5-4.9); Potassium, Blood 4.2 mmol/L (3.5-5.5); Sodium, Blood 136 mmol/L (136-145)
--- NOTE | 2019-01-09 06:24 | NUR ---
SHIFT SUMMARY NO ACUTE CHANGES OVERNIGHT. PT REMAINS INTUBATED AND SEDATED. NO NEUROLOGICAL CHANGES. SEE PREVIOUS SHIFT NOTES. WILL REPORT TO DAYSHIFT NURSE.
--- NOTE | 2019-01-09 09:14 | NUR ---
NO NEUROLOGICAL IMPROVEMENT NOTED FROM YESTERDAY'S ASSESSMENT. ON ASSESSMENT AT 0730, PT FOUND TO BE VERY AGITATED; GAGGING ON ETT, STACKING BREATHS ON VENT, PEEPS 40'S, RESP 30-40'S. THESE SYMPTOMS INCREASED IN FREQ. FROM 0745 TO PRESENT. BLOOD TRANSFUSION STARTED THIS AM; TEMP FOUND TO BE INACCURATE DUE TO PT BEING VERY DIAPHORETIC. RECTAL PROBE PLACED AT 0900 WHICH SHOWED TEMP 99.5. WHILE TURNING PT FOR PROBE PLACEMENT AND POSITION CHANGE, DECORDICATE POSTURING NOTED WITH AN INCREASED OF THE ABOVE NOTED SYMPTOMS. PT NOTED TO ALSO BE USING ACCESSORY MUSCLES IN EXCESS CAUSING PRONOUNCED WHEEZING; PT HAD EXP WHEEZING T/O THIS AM PRIOR TO BLOOD TRANSFUSION. AFTER TURN PT BECAME VERY HYPERTENSIVE W ACTIVE POSTURING. DR CASAS AT BEDSIDE. VERSED INCREASED TO 4MG/HR. EPI PLACED ON STANDBY. PROPOFOL STARTED AT 20MCG WITH GOOD EFFECT; WILL TITRATE SEDATION MEDS DOWN TOLERATED. PT FREE OF RASH OR FLUSHING, NO CHANGE IN HEART RATE. DR MALONE IN THIS AM; NO CHANGES REGARDING CARDIAC ORDERS; COMPLETE UPDATE GIVEN. RENAL ULTRASOUND COMPLETED. DR WILKINSON IN TO SEE PT; NEW IV FLUID ORDERS. EEG ORDERED FOR THURSDAY.
--- NOTE | 2019-01-09 09:32 | NUR ---
PT CALM AND STILL, EYES CLOSED, PRESSURES STARTING TO DROP AGAIN TO PREVIOUS HYPOTENSION STATE. EPI RESTARTED AT 2MG. PT APPEARS ADEQUATELY SEDATED.
--- NOTE | 2019-01-09 10:15 | NUR ---
PROPOFOL DECREASED TO 15MCG, VERSED DECREASED TO 3MG.
--- NOTE | 2019-01-09 10:25 | NUR ---
Pt visit this AM. Pt is resting in bed and intubated. Pt appears comfortable. Spoke with Pt's bedside nurse Althea and she reports family has changed Pt's code status to DNR. Althea reports family is considering placing Pt on comfort care pending further testing results for tomorrow. Althea reports no concerns at this time. Palliative Care will remain available.
--- NOTE | 2019-01-09 13:16 | NUR ---
LIFT USED TO TURN PT AT 1200. ETT AND IV LINES PLACED W SLACK. MID LIFT PT'S HEAD TURNED/FELL TO THE LEFT, ETT SLIPPED QUICKLY FROM SECUREMENT DEVICE. I HAD KEPT MY EYES ON THE ETT DURING LIFT AND WATCHED IT SLIPPED; WAS UNABLE TO STOP ETT FROM SLIPPING FROM DEVICE IT HAPPENED TOO QUICKLY. PT LOWERED BACK TO BED WHILE RT AND RN ASSIST. CALLED. APPROX 5CM OF ETT REMAINED, PT NOT VENTILATING. AIR FROM BALLOON WITHDRAWN, ETT REMOVED COMPLETELY, PT BAGGED W AMBU WITH 100% O2. AUGUSTO UNAVAILABLE TO RE-INTUBATE, ER CALLED PER HER REQUEST. DR LAMB INTUBATED WITH GLIDASCOPE AND 8F TUBE. 200 SUCCS, 20 ETOMIDATE GIVEN FOR INTUBATION. POST CHEST XRAY COMPLETED. FAMILY NOTIFIED. DR CASAS CALLED TO GIVE UPDATE. PT'S HEART RATE AND RHYTHM WITHOUT CHANGE T/O INCIDENT. O2 SATS REMAINED IN 90% AND BRIEFLY DROPPED TO 86% JUST PRIOR TO INTUBATION.
[2019-01-09 13:59] LABS: Hematocrit 24.3 % (37.0-53.0); Hemoglobin 7.9 g/dL (13.5-17.5)
--- NOTE | 2019-01-09 17:38 | NUR ---
69CC VERSED CLEARED FROM IV PUMP AT 1731. VERSED REMAINS AT 3MG/HR, FENT 25MCG/HR, EPI AT 2MCG/MIN.
--- NOTE | 2019-01-09 22:06 | NUR ---
ASSUMED CARE OF PT PT INTUBATED, VENT SETTINGS AC 18/450/5/35% AND SEDATED ON PROPOFOL 20 MCG/KG/MIN, VERSED 3 MG/HR, AND FENTANYL 25 MCG/HR. EPINEPHRINE RUNNING AT 3 MG/HR FOR HYPOTENSION. OGT TO LIS WITH BROWN LIQUID OUTPUT. NORRIS PATENT AND DRAINING SMALL AMOUNT OF CLOUDY YELLOW URINE. SEE FULL SHIFT ASSESSMENT.
[2019-01-10 04:48] LABS: BASOPHILS ABSOLUTE AUTO 0.07 K/mm3 (0.00-0.23); BASOPHILS PERCENT AUTO 0 % (0-2); EOSINOPHILS ABSOLUTE AUTO 0.09 K/mm3 (0.00-0.68); EOSINOPHILS PERCENT AUTO 1 % (0-6); Hematocrit 20.7 % (37.0-53.0); Hemoglobin 6.9 g/dL (13.5-17.5); IMMATURE GRAN ABSOLUTE AUTO 0.18 K/mm3 (0.00-0.10); IMMATURE GRAN PERCENT AUTO 1 % (0-1); LYMPHOCYTES ABSOLUTE AUTO 1.81 K/mm3 (0.84-5.20); LYMPHOCYTES PERCENT AUTO 10 % (21-46); MONOCYTES ABSOLUTE AUTO 1.54 K/mm3 (0.16-1.47); MONOCYTES PERCENT AUTO 8 % (4-13); Mean Corpuscular HGB 31.4 pg (26.0-34.0); Mean Corpuscular HGB Conc 33.3 g/dL (31.5-36.5); Mean Corpuscular Volume 94 fL (80-100); Mean Platelet Volume 11.5 fL (9.1-12.4); NEUTROPHILS PERCENT AUTO 80 % (41-73); NRBC ABSOLUTE 0.04 K/mm3 (0.00-0.02); NRBC Auto 0.2 /100 WBC (0.0-0.2); Platelet Count 92 K/mm3 (150-400); RDW Coefficient Variation 15.4 % (11.7-14.2); RDW Standard Deviation 51.8 fL (35.1-46.3); White Blood Cell Count 18.79 K/mm3 (4.00-11.30)
[2019-01-10 05:08] LABS: Alanine Aminotransfer (ALT/SGP 27 U/L (12-78); Albumin, Blood 2.1 g/dL (3.4-5.0); Albumin/Globulin Ratio 0.8 (0.8-1.8); Alk Phos 51 U/L (50-136); Anion Gap 11 mmol/L (6-16); Aspartate Aminotrans (AST/SGOT 194 U/L (12-37); Bilirubin, Total 0.4 mg/dL (0.1-1.0); Blood Urea Nitrogen 55 mg/dL (8-24); Bun/Creatinine Ratio 9.6 (12.0-20.0); CO2, Blood 19 mmol/L (21-32); Calcium, Blood 6.9 mg/dL (8.5-10.1); Chloride, Blood 107 mmol/L (98-108); Creatinine, Blood 5.71 mg/dL (0.60-1.20); Globulin, Blood 2.8 g/dL (2.2-4.0); Glomerular Filtration Rate 11 (60-); Glucose, Blood 165 mg/dL (70-99); Magnesium, Blood 2.8 mg/dL (1.6-2.4); Phosphorus, Blood 4.6 mg/dL (2.5-4.9); Potassium, Blood 3.8 mmol/L (3.5-5.5); Sodium, Blood 137 mmol/L (136-145); Total Protein, Blood 4.9 g/dL (6.4-8.2)
--- NOTE | 2019-01-10 06:21 | NUR ---
SHIFT SUMMARY PT REMAINS INTUBATED WITH VENT SETTINGS 18/450/5/30%. PT'S LEFT LUNG SOUNDS COARSE WITH EXPIRATORY WHEEZES UPPER AND LOWER, RIGHT SIDE LUNG SOUNDS COARSE AND DIMINISHED. PT GIVEN NEB TREATMENT WITH NO IMPROVEMENT. PT HAD 400 ML URINARY OUTPUT THIS SHIFT. PT 4L FLUID POSITIVE. 200 ML GREENISH OUTPUT FROM NG TUBE, HOOKED TO LIS. PT HAS HAD LESS SPUTUM OUTPUT THIS SHIFT. PT SEDATED WITH FENTANYL GTT 25 MCG/HR, VERSED 2 MG/HR, AND PROPOFOL 20 MCG/KG/MIN. PT NEUROLOGICALLY REMAINS UNCHANGED. PT DOES NOT FOLLOW COMMANDS AND EXHIBITS NO PURPOSEFUL MOVEMENT. MAP REMAINS IN THE UPPER 60'S TO 70'S ON 1 MCG/MIN EPINEPHRINE. PT STILL IN AFIB. WILL REPORT TO DAYSWIFT NURSE.
--- NOTE | 2019-01-10 09:35 | NUR ---
0800: CARE ASSUED, ASSESSMENT COMPLETED. PT RESTING QUIETLY IN BED, VSS, NO AGITATION OR RESTLESSNESS NOTED. NOLVIA, PT DOES NOT RESPOND TO PAIN OR TRACK MOVEMENTS. VERSED 2MG/HR, FENTANYL 25MCG/HR, PROPOFOL 20MCG/KG/MIN. D5NS WITH BICARB 8.4% DECREASED TO 50ML/HR PER DR. WILKINSON, EPINEPHERINE GTT OFF AT THIS TIME FOR MAP 70'S. HR 70'S-90'S IRREG, AFIB, LS COARSE T/O WITH RUL EXP WHEEZE. BILAT GROIN AND RIGHT WRIST DRESSINGS INTACT, HEMATOMA TO RIGHT GROIN DISPERSING, NO KNOT NOTED UNDER SKIN, BRUISING TO GROIN AND TESTICLES NOTED, PENIS AND TESTICLES SWOLLEN. BUE PULSES BY DOPPLER ONLY. FENTANYL, PROPOFOL, AND VERSED OFF AT THIS TIME FOR VACATION. VENT SETTINGS AC18/450/5/30%. 0830: PT BECAME AGITATED, COUGING, RESPIRATIONS 32. NOT TRACKING OR FOLLOWING COMMANDS, DOES NOT RESPOND TO PAINFUL STIMULI. FENTANYL, VERSED, AND PROPOFOL RESUMED AT PREVIOUS RATES. VENT SETTINGS UNCHANGED. 0935: PT CALM, VSS, EPI REMAINS OFF, VENT SETTIGS UNCHANGED. NO COUGHING OR AGITATION NOTED. BLOOD ADMINISTRATION STARTED AT THIS TIME, VSS, PT AFEBRILE. 0950: NO S/SX BLOOD TRANSFUION REACTION AFTER FIRST 15 MINUTES. VSS.
--- NOTE | 2019-01-10 10:56 | NUR ---
1055: DR. JUAREZ AT BEDSIDE, VERSED, FENTANYL, AND PROPOFOL OFF AT THIS TIME PER HIS ORDERS. VENT SETTINGS UNCHANGED, RR 18, Vt 400-400'S. WILL CONTINUE TO MONITOR.
--- NOTE | 2019-01-10 11:27 | NUR ---
1125: VERSED 2MG ADMINISTERED PER ORDERS FOR AGITATION, COUGING, AND RR 30, GOOD RESULTS FROM VERSED, PT NOW CALM. RR 27, Vt 480, SPO2 96%. DR. JUAREZ AT BEDSIDE SPEAKING WITH FAMILY.
--- NOTE | 2019-01-10 12:37 | NUR ---
1230: PT HAS CALMED SINCE VERSED ADMINISTRATION, RR 20'S, Vt 500, PT RESTING QUIETLY, NO AGITATION NOTED AT THIS TIME. PT CONTINUES TO COUGH OCCASIONALLY, HUBBARD SPUTUM SUCTIONED FROM ETT TUBE WHICH SEEMS TO CALM HIS COUGH. FAMILY AT BEDSIDE, LASIX INFUSING PER ORDERS.
--- NOTE | 2019-01-10 13:48 | NUR ---
Spiritual Care visit: Met with Edna, her two sons, and DEBBIE. Provided theraputic listening and gentle crisis counseling to good effect. Family appears supportive and loving. No conflict with POC. Edna says she is still holding out hope "he will wake up and walk out of here." She is awaiting results of EEG to determine POC. She admits Raul would not want to live with more limitations than he already had. We have an easy rapport, and we prayed for peace and healing. I will remain available.
--- NOTE | 2019-01-10 14:09 | NUR ---
1400: PRBC'S INFUSING PER ORDERS. VERSED ADMINISTERED FOR COUGHING AND AGITATION, PT REPOSITIONED FOR COMFORT. VSS, VENT SETTINGS UNCHANGED. AT BEDSIDE.
--- NOTE | 2019-01-10 14:54 | NUR ---
1340: LASIX INCREASED TO 6MG/HR FOR URINE OUTPUT <125/HR. 1450: URINE OUTPUT 175ML THIS PAST HOUR, LASIX INFUSION REMAINS AT 6MG/HR. PT SUCTIONED, RESTING QUITELY AT THIS TIME.
--- NOTE | 2019-01-10 17:31 | NUR ---
1515: PT BECOMING AGITATED, COUGHING, RR 30'S, BP ELEVATED. FENTANYL ADMINISTERED PER ORDERS FOR COMFORT. ETT SUCTIONED, LIGHT HUBBARD SPUTUM. 1640: BP HYPERTENSIVE, DR JUAREZ AWARE, NEW ORDERS RECEIVED. LABETOLOL ADMINISTERED PER ORDERS WITH GOOD RESULTS. PT RESTING IN BED, OCCASIONALLY BECOMES AGITATED, SETTLES WITH ETT SUCTIONING AND REPOSITIONING. VSS AT THIS TIME, VENT SETTINGS UNCHANGED. 1730: APPLIANCE MECHANIC AT BEDSIDE FOR TESTING, PT REPOSITIONED, IS CALM AT THIS TIME. VSS, NO COUGHING OR AGITATION NOTED.
--- NOTE | 2019-01-10 18:18 | NUR ---
1820: FENTANYL ADMINISTERED PER DR. JUAREZ FOR AGITATION DURING EEG. VSS.
--- NOTE | 2019-01-10 18:59 | NUR ---
1900: EEG COMPLETED, PT RESTING QUIETLY IN BED, NO AGITATION OR COUGHING NOTED. VSS, HR 70'S, SBP 150'S SINCE LABETOLOL. VENT SETTINGS UNCHANGED T/O SHIFT, REMAIN AC18/450/30/5. LS REMAIN COARSE, LASIX INFUSING WITH GOOD URINE OUTPUT. EDEMA REMAINS PRESENT BUT DOES NOT APPEAR TO BE INCREASING. REPORT TO ONCOMING SHIFT.
--- NOTE | 2019-01-10 19:50 | NUR ---
ASSESSMENT PT INTUBATED AND [facility]. OPENS EYES BUT WILL NOT TRACK OR FOLLOW INSTRUCTIONS. BILAT SOFT WRIST RESTRAINTS ON. LUNGS COARSE AND DECREASED IN THE BASES. VENT SETTINGS AC 18 TV 450 PEEP 5 FIO2 30%. SUCTIONED SCANT AMT THIN CLEAR SECRECTIONS. HEART RATE IRREGULAR- AFIB/FUTTER. BP STABLE. BT+ HYPOACTIVE. OG TO LIS WITH GREEN DRAINAGE. NORRIS CATH PATENT DRAINING CLEAR YELLOW URINE. PICC LINE TO LEFT UPPER ARM WITH BLOODY DRAINAGE NOTED. LASIX GTT AT 6 MG/HR 3 ML/HR AND D5W NS WITH BICARB AT 50 ML/HR. RIGHT WRIST POLY SITE CLEAR. RIGHT GROIN SITE WITH BRUISING, SOFT TO PALP. LEFT GROIN SOFT TO PALP. NO BLEEDING OR HEMATOMA NOTED TO EITHER SITE. SCD'S ON. PT INCONT STOOL. TOBY CARE DONE AND PT REPOSITIONED. LINENS CHANGED
--- NOTE | 2019-01-11 00:05 | NUR ---
REASSESSMENT PT CONT INTUBATED AND ON ME[facility] VENT. NO VENT CHANGES. PT MED WITH VERSED 2 MG FOR SEDATION PRN. LUNGS CLEAR BUT DECREASED, SUCTIONED SCANT AMT THIN CLEAR SECRECTIONS VIA ET TUBE. PT INCONT OF STOOL. TOBY CARE DONE AND PT REPOSITIONED. LOPRESSOR GIVEN VIA OG, OG CLAMPED. PT NOT TRACKING OR FOLLOWING INSTRUCTIONS.
[2019-01-11 03:26] LABS: BASOPHILS ABSOLUTE AUTO 0.07 K/mm3 (0.00-0.23); BASOPHILS PERCENT AUTO 0 % (0-2); EOSINOPHILS ABSOLUTE AUTO 0.17 K/mm3 (0.00-0.68); EOSINOPHILS PERCENT AUTO 1 % (0-6); Hematocrit 29.6 % (37.0-53.0); Hemoglobin 9.8 g/dL (13.5-17.5); IMMATURE GRAN ABSOLUTE AUTO 0.19 K/mm3 (0.00-0.10); IMMATURE GRAN PERCENT AUTO 1 % (0-1); LYMPHOCYTES ABSOLUTE AUTO 1.46 K/mm3 (0.84-5.20); LYMPHOCYTES PERCENT AUTO 8 % (21-46); MONOCYTES ABSOLUTE AUTO 1.98 K/mm3 (0.16-1.47); MONOCYTES PERCENT AUTO 11 % (4-13); Mean Corpuscular HGB 30.7 pg (26.0-34.0); Mean Corpuscular HGB Conc 33.1 g/dL (31.5-36.5); Mean Corpuscular Volume 93 fL (80-100); Mean Platelet Volume 11.5 fL (9.1-12.4); NEUTROPHILS PERCENT AUTO 78 % (41-73); NRBC ABSOLUTE 0.02 K/mm3 (0.00-0.02); NRBC Auto 0.1 /100 WBC (0.0-0.2); Platelet Count 92 K/mm3 (150-400); RDW Coefficient Variation 15.6 % (11.7-14.2); Red Blood Cell Count 3.19 M/mm3 (4.30-5.90); White Blood Cell Count 17.57 K/mm3 (4.00-11.30)
[2019-01-11 03:40] LABS: Albumin, Blood 2.5 g/dL (3.4-5.0); Anion Gap 11 mmol/L (6-16); Blood Urea Nitrogen 59 mg/dL (8-24); Bun/Creatinine Ratio 9.7 (12.0-20.0); CO2, Blood 22 mmol/L (21-32); Calcium, Blood 7.4 mg/dL (8.5-10.1); Chloride, Blood 108 mmol/L (98-108); Creatinine, Blood 6.06 mg/dL (0.60-1.20); Glomerular Filtration Rate 10 (60-); Glucose, Blood 108 mg/dL (70-99); Magnesium, Blood 2.7 mg/dL (1.6-2.4); Phosphorus, Blood 5.7 mg/dL (2.5-4.9); Sodium, Blood 141 mmol/L (136-145)
--- NOTE | 2019-01-11 06:09 | NUR ---
SHIFT SUMMARY PT REMAINS INTUBATED AND [facility]. NO VENT CHANGES DURING THE NIGHT. CURRENT VENT SETTINGS AC 18 TV 450 PEEP 5 FIO2 30%. LUNGS CLEAR BUT DECREASE, SUCTIONING SCANT AMT THIN SECRECTIONS VIA ET TUBE. HEART RATE IRREGULAR- A FLUTTER 60-90'S. BP STABLE. BT+ HYPOACTIVE. OG TO LIS. INCONT TWO LOOSE STOOLS DURING THE NIGHT. TURNED Q2HRS. BLOOD GLUCOSE Q6HR, NO INSULIN COVERAGE GIVEN. BILAT SOFT WRIST RESTRAINTS ON. PT NOT TRACKING OR FOLLOWING INSTRUCTIONS. OPENING EYES AND YAWNING. MED WITH VERSED AND FENTANYL DURING THE NIGHT FOR SEDATION. PICC DRSG CHANGED. REPORT TO ON COMING NURSE
--- NOTE | 2019-01-11 07:46 | NUR ---
Recieved report from Krystin SPRAGUE. Patient is intubated with no sedation. He opens eyes spontaneously and no tracking or purposeful movement. His vent settings are AC 18, TV 450, FiO2 30% and PEEP 5.0 and sats 95%. He has 8.0 ET and is 25cm at lips. He has PICC line in KATI dressing intact and site WNL's and is infusing D5 NS with bicarb at 50ml/hr. He also has titrated Lasix gtt to have min 125ml/hr of urine out put and can titrate to 80mg/hr. He has 16 Fr Álvarez draining to gravity clear yellow urine. Patient has rectal probe temp of 99.6. He has bilateral SCD's in place. OG in place to LIS and has light green bile output in moderate amounts. Right groin bruised and defused to left side.
--- NOTE | 2019-01-11 09:30 | NUR ---
Dr Owen was in room with patients son and wants meeting when family arrives. VS stable. He has been on average 300ml of clear yellow urine output an hour. Still no tracking with eye opening but responds mildly to painful stimuli. He continues to blink and open eyes. He has some gross movements from extremities.
--- NOTE | 2019-01-11 10:43 | NUR ---
Spiritual care visit conducted. Patient's son, Ankit, is in the hallway just outside of patient's room. Ankit, shares with me about his emotional status and about the peace he feels about the decision to make patient DNR status. Ankit feels he has come to terms with if patient "doesn't make it," or if he recovers (regardless of what that recovery might look like). Ankit also said that family is pulling together well in the process. I listened empathically, provided companionship and a calming presence. Ankit thanked me for the time and conversation. I will continue to remain available.
--- NOTE | 2019-01-11 11:33 | NUR ---
Family met with Dr Bradley and Dr Owen and will start heparin for atrial flutter. Place lasix drip on hold for two hours to see output. VSS. No neuro changes.
--- NOTE | 2019-01-11 13:30 | NUR ---
Patient remains on same vent settings and tolerating well. He awakens to painful stimuli and opens eyes when sternal rub, but does not track. He has minimal gross movements to extremities, Lasix drip remains off and has 150ml of clear yellow output hourly minimally. at bedside.
--- NOTE | 2019-01-11 15:30 | NUR ---
Started Heparin gtt without bolus and watching groin area for any increased bruising or firmness. Heparin running at 8 units/hr. Continues in a-flutter rate 80-90's. Sats low to mid 90% on same vent settings.
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
--- NOTE | 2019-01-11 18:00 | NUR ---
Patient remians on Heparin at 8 unit/hr. He remains on same vent settings all day and sats mid 90%'s lasix gtt remains on hold per Dr Bradley for urine output of 125ml/hr. He continues to respond to painful stimuli and has minimal gross extremity movement. at bedside.
--- NOTE | 2019-01-11 19:15 | NUR ---
ASSUMED CARE PT REMAINS INTUBATED W/O SEDATION. CURRENT VENT SETTINGS OF AC18/450/30%/5. PT OPENS EYES TO VOICE AND NOXIOUS STIM BUT THERE IS NO TRACKING OR FOLLOWING COMMANDS. OG TO LIS WITH PLANS TO RESTART NEPRO TF AT 10ML/HR TONIGHT; PLAN TO MONITOR CLOSELY D/T PREVIOUS HIGH RESIDUALS. HEPARIN AT 8 UNITS/KG/HR AND LASIX GTT ON STANDBY-PER DR JUAREZ ONLY RESUME LASIX IF UOP <125ML/HR AND CURRENTLY AT 150. BP STABLE, ECG SHOWS AFLUTTER/AFIB AND O2 SATS MID 90'S.
--- NOTE | 2019-01-11 21:28 | NUR ---
TF RESTART NEPRO RESTARTED AT 10ML/HR WITH 30ML/4HR FLUSH.
--- NOTE | 2019-01-12 | NUR ---
UPDATE TF RESTARTED AT 10ML/HR, CURRENT RESIDUAL OF 10ML. UOP SLOWING TO 100ML/HR AND LASIX GTT RESTARTED AT 5MG/HR.
--- NOTE | 2019-01-12 03:10 | NUR ---
UPDATE PT HAD LARGE BM, RECTAL TEMP PROBE REMOVED AND RECTAL TUBE PLACED D/T LIQUID NATURE OF BM. TF REMAINS AT 10ML/HR WITH ALL RESIDUALS CHECKED SO FAR AT 10ML. PICC LINE HAS BLED THROUGH DRESSING AGAIN, DRESSING CHANGED A SECOND TIME AND PRESSURE HELD AND INSERTION SITE X 10 MINUTES. ARM ELEVATED AND TOWEL ROLL PLACED UNDER ARM FOR LIGHT PRESSURE, WILL CONTINUE TO REASSESS FOR ADDITIONAL BLEEDING FROM SITE.
[2019-01-12 03:50] LABS: BASOPHILS ABSOLUTE AUTO 0.06 K/mm3 (0.00-0.23); BASOPHILS PERCENT AUTO 0 % (0-2); EOSINOPHILS ABSOLUTE AUTO 0.15 K/mm3 (0.00-0.68); EOSINOPHILS PERCENT AUTO 1 % (0-6); Hematocrit 30.1 % (37.0-53.0); IMMATURE GRAN ABSOLUTE AUTO 0.27 K/mm3 (0.00-0.10); IMMATURE GRAN PERCENT AUTO 2 % (0-1); LYMPHOCYTES ABSOLUTE AUTO 1.79 K/mm3 (0.84-5.20); LYMPHOCYTES PERCENT AUTO 12 % (21-46); MONOCYTES ABSOLUTE AUTO 1.79 K/mm3 (0.16-1.47); MONOCYTES PERCENT AUTO 12 % (4-13); Mean Corpuscular HGB 30.6 pg (26.0-34.0); Mean Corpuscular HGB Conc 33.2 g/dL (31.5-36.5); Mean Corpuscular Volume 92 fL (80-100); Mean Platelet Volume 10.9 fL (9.1-12.4); NEUTROPHILS ABSOLUTE AUTO 11.07 K/mm3 (1.96-9.15); NEUTROPHILS PERCENT AUTO 73 % (41-73); NRBC ABSOLUTE 0.03 K/mm3 (0.00-0.02); NRBC Auto 0.2 /100 WBC (0.0-0.2); Platelet Count 134 K/mm3 (150-400); RDW Coefficient Variation 15.2 % (11.7-14.2); RDW Standard Deviation 50.5 fL (35.1-46.3); Red Blood Cell Count 3.27 M/mm3 (4.30-5.90); White Blood Cell Count 15.13 K/mm3 (4.00-11.30)
[2019-01-12 04:08] LABS: Albumin, Blood 2.4 g/dL (3.4-5.0); Anion Gap 11 mmol/L (6-16); Blood Urea Nitrogen 70 mg/dL (8-24); Bun/Creatinine Ratio 11.4 (12.0-20.0); CO2, Blood 23 mmol/L (21-32); Calcium, Blood 7.7 mg/dL (8.5-10.1); Chloride, Blood 107 mmol/L (98-108); Creatinine, Blood 6.12 mg/dL (0.60-1.20); Glomerular Filtration Rate 10 (60-); Glucose, Blood 111 mg/dL (70-99); Magnesium, Blood 2.7 mg/dL (1.6-2.4); Phosphorus, Blood 6.1 mg/dL (2.5-4.9); Potassium, Blood 3.3 mmol/L (3.5-5.5); Sodium, Blood 141 mmol/L (136-145)
--- NOTE | 2019-01-12 06:24 | NUR ---
SHIFT SUMMARY SEE PREVIOUS NOTES FOR SHIFT. PT REMAINS INTUBATED AT AC18/450/30%/5, NO SEDATION. PT OPENS EYES SPONTANEOUSLY BUT DOES NOT TRACK OR FOLLOW COMMANDS. PT DOES PULL AWAY FROM NOXIOUS STIM. TF RESTARTED LAST NIGHT AT 10ML/HR AND RESIDUALS HAVE BEEN MINIMAL AND PT DID HAVE A LIQUID BM; RECTAL TEMP PROBE REMOVED AND RECTAL TUBE PLACED. PICC LINE DRESSING CHANGED X 2 D/T LEAKAGE FROM INSERTION SITE. PICC NOW HAS A SMALL AMOUNT OF LEAKAGE BUT IT IS ELEVATED WITH A TOWEL ROLL TO APPLY LIGHT PRESSURE. LASIX GTT RESTARTED WHEN UOP DROPPED TO <125ML/HR AND HAS REMAINED AT 5MG/HR WITH UOP NOW 125-200ML/HR. BP ELEVATED AT TIMES BUT LESS ONCE MEDICATED FOR PAIN. HEPARIN INCREASED POST AM PTT AND IS NOW AT 10 UNITS/KG/HR.
--- NOTE | 2019-01-12 10:46 | NUR ---
ON AM ASSESSMENT, PT WAS SPONT OPENING EYES BUT HAS NO BLINK RESPONSE TO VISUAL MOVEMENT JUST SPONT BLINK RANDOMLY. PT WILL WITHDRAW TO BILAT FEET STUMULATION BUT NO ARM MOVEMENT NOTED SPONT OR OTHERWISE. PT DOES HAVE A STRONG GAG AND COUGH RESPONSE AND WILL ATTEMPT TO RAMDOMLY BUT AGRESSIVELY TURN AWAY FROM ORAL CARE AND SUCTIONINIG. VS NOTED. NO FAMILY IN AT THIS TIME.
--- NOTE | 2019-01-12 11:45 | NUR ---
PT U.O NOTED AT THIS POINT IN SHIFT. LASIX NOW ON STANDBY PER DR JUAREZ AND WILL FURTHER EVALUATE U.O. LATER THIS SHIFT.
[2019-01-12 12:02] LABS: International Normalized Ratio 2.23
--- NOTE | 2019-01-12 18:42 | NUR ---
PT I/O NOTED AND LASIX REMAINS OFF. FENT IVP TIMES 2 HAS ASSISTED BP AND ANXIETY NOTED ON HR AND BP READINGS. PT TOLERATING T.F. WELL W/O RESIDUALS. VS NOTED. PT NEURO STATUS HAS NOT CHANGED DURING THE DAY. PT RETURNED HOME APPROX. 1700 FOR THE DAY.
--- NOTE | 2019-01-12 19:15 | NUR ---
ASSUMED CARE PT REMAINS INTUBATED WITHOUT SEDATION; VENT SETTINGS AT AC18/450/30%/5. NEURO STATUS UNCHANGED-PT SPONTANEOUSLY OPENS EYES TO NOISE, PULLS AWAY FROM NOXIOUS STIM BUT DOES NOT TRACK OR FOLLOW COMMANDS. GROSS MOTOR MOVEMENT OF ALL EXTREMITIES NOTED WITH COUGHT BUT NOT PURPOSEFUL. HEPARIN GTT AT 10 UNITS/KG/HR AND LASIX OFF OVERNIGHT WITH PLAN TO RE-EVAL TOMORROW. TF AT GOAL OF 25ML/HR WITH MINIMAL RESIDUALS, RECTAL TUBE REMAINS IN PLACE WITH LIQUID STOOL. BP REMAINS HTN, PLAN TO MEDICATE FOR PAIN PRIOR TO HTN MEDS, ECG SHOWS AFIB/FLUTTER AND O2 SATS 96%.
--- NOTE | 2019-01-12 20:39 | NUR ---
UPDATE FAMILY IN ROOM, REPORTS SHE IS "SISTER" OF PT. VISITOR IS ANXIOUS WITH ANY CARE PROVIDED AND CONCERNED THAT STAFF IS "CAUSING ALARMS TO START BEEPING" WITH ANY CARE/REPOSITIONING. EDUCATED VISITOR THAT ALARMS ARE NORMAL AND LET US KNOW WHEN SOMETHING IS WRONG, ABOUT NEED TO PREVENT SKIN BREAKDOWN AND COUGHING WHILE ON THE VENTILATOR IS NORMAL. VISITOR STATES "I KNOW." WILL CONTINUE TO PROVIDE EDUCATION TO FAMILY NEEDED.
[2019-01-13 04:10] LABS: BASOPHILS ABSOLUTE AUTO 0.09 K/mm3 (0.00-0.23); BASOPHILS PERCENT AUTO 1 % (0-2); EOSINOPHILS ABSOLUTE AUTO 0.19 K/mm3 (0.00-0.68); EOSINOPHILS PERCENT AUTO 1 % (0-6); Hematocrit 30.2 % (37.0-53.0); IMMATURE GRAN ABSOLUTE AUTO 0.49 K/mm3 (0.00-0.10); IMMATURE GRAN PERCENT AUTO 3 % (0-1); LYMPHOCYTES ABSOLUTE AUTO 1.84 K/mm3 (0.84-5.20); LYMPHOCYTES PERCENT AUTO 13 % (21-46); MONOCYTES ABSOLUTE AUTO 1.67 K/mm3 (0.16-1.47); MONOCYTES PERCENT AUTO 11 % (4-13); Mean Corpuscular HGB 30.7 pg (26.0-34.0); Mean Corpuscular HGB Conc 33.1 g/dL (31.5-36.5); Mean Corpuscular Volume 93 fL (80-100); Mean Platelet Volume 10.5 fL (9.1-12.4); NEUTROPHILS ABSOLUTE AUTO 10.31 K/mm3 (1.96-9.15); NEUTROPHILS PERCENT AUTO 71 % (41-73); NRBC ABSOLUTE 0.03 K/mm3 (0.00-0.02); NRBC Auto 0.2 /100 WBC (0.0-0.2); Platelet Count 178 K/mm3 (150-400); RDW Coefficient Variation 14.8 % (11.7-14.2); RDW Standard Deviation 50.4 fL (35.1-46.3); Red Blood Cell Count 3.26 M/mm3 (4.30-5.90); White Blood Cell Count 14.59 K/mm3 (4.00-11.30)
[2019-01-13 04:27] LABS: Albumin, Blood 2.2 g/dL (3.4-5.0); Anion Gap 12 mmol/L (6-16); Blood Urea Nitrogen 73 mg/dL (8-24); CO2, Blood 24 mmol/L (21-32); Calcium, Blood 7.8 mg/dL (8.5-10.1); Chloride, Blood 108 mmol/L (98-108); Creatinine, Blood 5.21 mg/dL (0.60-1.20); Glomerular Filtration Rate 12 (60-); Glucose, Blood 149 mg/dL (70-99); Magnesium, Blood 2.5 mg/dL (1.6-2.4); Phosphorus, Blood 5.1 mg/dL (2.5-4.9); Potassium, Blood 2.9 mmol/L (3.5-5.5); Sodium, Blood 144 mmol/L (136-145)
[2019-01-13 04:29] LABS: International Normalized Ratio 2.31; Prothrombin Time Results 22.7 Sec (9.7-11.5)
--- NOTE | 2019-01-13 05:10 | NUR ---
SBT SBT UNDERWAY WITH RT, PT REMAINS OFF SEDATION. PT INITIALLY TRIGGERED THE APNEA ALARM A FEW TIMES PRIOR TO TAKING ADEQUATE BREATHS ON HIS OWN. BP ELEVATED WITH SBP'S IN THE 160'S.
--- NOTE | 2019-01-13 06:08 | NUR ---
SHIFT SUMMARY SEE PREVIOUS NOTES FOR SHIFT. NO CHANGE TO NEURO STATUS; PT DOES NOT FOLLOW COMMANDS, OPENS EYES SPONTANEOUSLY BUT DOES NOT TRACK AND HAS + GAG AND COUGH. SBT COMPLETED AND PT ABLE TO COMPLETE ALL 30 MINUTES ONCE MEDICATED WITH IV LABETALOL D/T SBP >180'S. PT RETURNED TO PREVIOUS VENT SETTINGS. HEPARIN NOW AT 12 UNITS/KG/HR, CALL OUT TO DR WILKINSON THIS AM FOR K+ OF 2.9 AND BAG 1 OF 2 OF KCL INFUSING. TF REMAINS AT GOAL OF 25ML/HR WITH MAX RESIDUAL OF 20ML. RECTAL TUBE IN PLACE WITH 140ML LIQUID STOOL OUTPUT.
--- NOTE | 2019-01-13 09:53 | NUR ---
0800 PT STATUS GENERALLY STABLE AND UNCHANGED FROM YESTERDAY. PT HAS KNEE FLEXION BILAT WITH DISTAL FEET STIMULATION. MOVEMENT OF ARMS IS ONLY NOTED WTIH SUCTIONING AND REPOSITIONING. PUPILS ONLY VERY SLIGHT RESPONSE AND NO BLINK NOTED TO NORMAL STIMULATION. CHEST RUB APPEARS QUITE PAINFUL THERE WAS A QUICK RESPONSE.
--- NOTE | 2019-01-13 09:59 | NUR ---
0915 DR GRANT IN TO ASSESS. VENT CHANGED TO SPONTANIOUS AT 10/5 30%. PT BP ELEVATED WTIH STIMULATION. PT NOTED TO HAVE APNIC ALARM BUT WAS ABLE TO SELF RESOLVE AND RR 16-20 WITH TV >400 CURRENTLY, SATS STABLE.
--- NOTE | 2019-01-13 10:27 | NUR ---
PT CONT TO TOLERATE SPONT SETTINGS, WILL MONITOR.
[2019-01-13 11:46] LABS: Albumin, Blood 2.3 g/dL (3.4-5.0); Anion Gap 9 mmol/L (6-16); Blood Urea Nitrogen 70 mg/dL (8-24); Bun/Creatinine Ratio 14.4 (12.0-20.0); CO2, Blood 24 mmol/L (21-32); Calcium, Blood 7.7 mg/dL (8.5-10.1); Chloride, Blood 109 mmol/L (98-108); Creatinine, Blood 4.85 mg/dL (0.60-1.20); Glomerular Filtration Rate 13 (60-); Glucose, Blood 133 mg/dL (70-99); Phosphorus, Blood 5.1 mg/dL (2.5-4.9); Potassium, Blood 3.5 mmol/L (3.5-5.5); Sodium, Blood 142 mmol/L (136-145)
--- NOTE | 2019-01-13 18:33 | NUR ---
PT HAS TOLERATED BEING ON SPONTANIOUS SETTINGS WELL. THERE HAVE BEEN SOME OCC APNEA PERIODS BUT PT HAS SELF CORRECTED AND RR HAS REMAINS STABLE BETWEEN 16-20 WITH GOOD SATS NOTED. REMAINS AT. FIB/FLUTTER. FENTANYL IVP X2 FOR PAIN/BP CONTROL. I/O NOTED.
--- NOTE | 2019-01-13 20:16 | NUR ---
ASSUMED CARE OF PT PT'S EYES SPONTANEOUSLY OPEN WITH NO TRACKING, PT WITHDRAWS FROM PAIN. VENT HAS BEEN ON SPONTANEOUS 06/18 SINCE 914. RECTAL TUBE AND NORRIS PATENT AND DRAINING TO GRAVITY. NEPRO TF RUNNING AT GOAL RATE OF 25 ML/HR WITH 30 ML Q4 H20 FLUSH. SEE FULL SHIFT ASSESSMENT.
--- NOTE | 2019-01-14 01:45 | NUR ---
PT SWITCHED BACK TO AC /5/30% DUE TO PERIODS OF APNEA AND ALARMING VENT
[2019-01-14 03:53] LABS: BASOPHILS ABSOLUTE AUTO 0.08 K/mm3 (0.00-0.23); BASOPHILS PERCENT AUTO 1 % (0-2); EOSINOPHILS ABSOLUTE AUTO 0.16 K/mm3 (0.00-0.68); EOSINOPHILS PERCENT AUTO 1 % (0-6); Hematocrit 29.2 % (37.0-53.0); Hemoglobin 9.5 g/dL (13.5-17.5); IMMATURE GRAN ABSOLUTE AUTO 0.53 K/mm3 (0.00-0.10); IMMATURE GRAN PERCENT AUTO 4 % (0-1); LYMPHOCYTES ABSOLUTE AUTO 1.53 K/mm3 (0.84-5.20); LYMPHOCYTES PERCENT AUTO 12 % (21-46); MONOCYTES ABSOLUTE AUTO 1.77 K/mm3 (0.16-1.47); MONOCYTES PERCENT AUTO 14 % (4-13); Mean Corpuscular HGB 30.5 pg (26.0-34.0); Mean Corpuscular HGB Conc 32.5 g/dL (31.5-36.5); Mean Corpuscular Volume 94 fL (80-100); Mean Platelet Volume 10.9 fL (9.1-12.4); NEUTROPHILS ABSOLUTE AUTO 8.76 K/mm3 (1.96-9.15); NEUTROPHILS PERCENT AUTO 68 % (41-73); NRBC ABSOLUTE 0.03 K/mm3 (0.00-0.02); NRBC Auto 0.2 /100 WBC (0.0-0.2); Platelet Count 229 K/mm3 (150-400); RDW Coefficient Variation 14.6 % (11.7-14.2); RDW Standard Deviation 50.5 fL (35.1-46.3); Red Blood Cell Count 3.11 M/mm3 (4.30-5.90); White Blood Cell Count 12.83 K/mm3 (4.00-11.30)
[2019-01-14 04:09] LABS: Albumin, Blood 2.7 g/dL (3.4-5.0); Anion Gap 10 mmol/L (6-16); Blood Urea Nitrogen 76 mg/dL (8-24); Bun/Creatinine Ratio 17.1 (12.0-20.0); CO2, Blood 26 mmol/L (21-32); Calcium, Blood 8.1 mg/dL (8.5-10.1); Chloride, Blood 109 mmol/L (98-108); Creatinine, Blood 4.45 mg/dL (0.60-1.20); Glomerular Filtration Rate 14 (60-); Glucose, Blood 150 mg/dL (70-99); Magnesium, Blood 2.3 mg/dL (1.6-2.4); Phosphorus, Blood 4.3 mg/dL (2.5-4.9); Sodium, Blood 145 mmol/L (136-145)
[2019-01-14 04:15] LABS: Prothrombin Time Results 39.6 Sec (9.7-11.5)
[2019-01-14 04:38] LABS: International Normalized Ratio 4.26
--- NOTE | 2019-01-14 04:45 | NUR ---
HOLD COUMADIN PER DR NELSON FOR CRITICAL INR 4.26
[2019-01-14 05:02] LABS: PCO2 Arterial 30.3 mmHg (35-45); pH Blood Arterial 7.52 (7.35-7.45)
--- NOTE | 2019-01-14 05:59 | NUR ---
SHIFT SUMMARY NO ACUTE CHANGES OVERNIGHT. PT OPENS EYES TO SOUND AND TO NAME BUT FAILS TO TRACK OR FOLLOW COMMANDS. VSS. PT ON AC 18/450/5/30%. 2300 URINARY OUTPUT AND 100 ML RECTAL TUBE OUTPUT. PT TOLERATING TF WELL, NO RESIDUALS. SEE PREVIOUS SHIFT NOTES. WILL REPORT TO DAYSHIFT NURSE.
--- NOTE | 2019-01-14 10:03 | NUR ---
Dr KUHN IN TO ASSESS PT. UPDATED DR ON PLAN OF CARE. NO NEW ORDERS AT THIS TIME.
--- NOTE | 2019-01-14 10:21 | NUR ---
INTERDISCIPLINARY TEAM DISCUSSED D/C NORRIS, HOWEVER, CONCERNED FOR POTENTIAL RETENTION PROBLEMS. WILL CONTINUE NORRIS INDWELLING AT THIS TIME.
--- NOTE | 2019-01-14 13:29 | NUR ---
Spiritual care visit conducted. Patient's , Edna, is bedside and in good spirits in spite of her 's current condition. Edna shared with me about the support the family is giving, about the medical challenges she has overcome and about the nelson she has. I provided companionship and prayer which appeared to be greatly appreciated. I continue to be available to patient and family.
--- NOTE | 2019-01-14 15:45 | NUR ---
Met with Raul's family in his room. He remains on ventilator support, opens eyes randomly but does not track with his eyes. Family states they are aware that he is going to have a head CT sometime today. They state that they feel physicians and staff are communicating well with them and they denied any current needs. They denied having any questions at this time. PC will remain available for future care planning.
--- NOTE | 2019-01-14 18:20 | NUR ---
SHIFT SUMMARY PT IS CURRENTLY ON VENT AC12/450/5/30%. ALBUMIN AND KCL INFUSING CURRENTLY. PT RESPONDS TO VERBAL AND PAINFUL STIMULI. PT DOES NOT TRACK WITH EYES, BUT OPENS THEM IN RESPONSE TO NOISE AND NOXIOUS STIMULI. PT ONLY SHOWS GROSS MOVEMENT OF EXTREMETIES WHEN COUGHING. PT IS HYPERTENSIVE MOST OF THE DAY 150-180'S. PT IS IN AFLUTTER WITH OCCASIONAL PVC'S. AND SON AT BEDSIDE FOR MAJORITY OF THE DAY.
--- NOTE | 2019-01-14 22:27 | NUR ---
ASSUMING CARE RECEIVED PT REPORT FROM CELESTINE WRIGHT AND CELESTINE LOZANO. PT IS INTUBATED AT THIS TIME. PT IS NOT ON ANY SEDATION. PT IS RESPONDING TO VERBAL STIMULATION BY OPENING EYES THOUGH PT DOES NOT APPEAR TO TRACK ANY MOVEMENTS OR OBJECTS WITH EYES. PT WILL BLINK TO OBJECTS APPROACHING VISUAL FIELD. PT IS UNABLE TO FOLLOW ANY COMMANDS. PT VENT SETTINGS ARE AC 12, TV 450, FIO2 30%, AND PEEP 5. PT SPO2 IS IN THE MID TO HIGH 90'S. PT IS NOTED TO HAVE BLOOD TINGED SPUTUM SUCTIONED FROM ETT TUBE. PT HAS NORRIS CATH IN PLACE. CURRENTLY PATENT AND DRAINING CLEAR YELLOW URINE. PT HAS RECTAL TUBE IN PLACE. STOOL IS LIQUIDY AND VERY DARK GREEN/BLACK COLORED. PT HR IS IN THE 90-120'S AT TIMES. PT IS IN A-FLUTTER WITH PVC'S. PT IS HYPERTENSIVE IN THE 170-180'S. PT PROVIDED FENTANYL AND LABETALOL WITH SOME EFFECT. PT TAKEN TO CT WITH ASSISTANCE FROM RT AND DEVULCANIZER CHARGER, SHORTLY AFTER SHIFT ASSESSMENT. PT IS RECEIVING TUBE FEEDING OF NEPHRO SOLUTION AT GOAL RATE OF 25ML/HR. PT HAS MINIMAL RESIDUALS NOTED AT THIS TIME. ASUMED CARE OF PT AT THE TIME OF SHIFT REPORT. WILL CONTINUE TO MONITOR PT.
[2019-01-15 03:29] LABS: Hematocrit 31.7 % (37.0-53.0); Hemoglobin 10.1 g/dL (13.5-17.5)
[2019-01-15 03:46] LABS: Albumin, Blood 3.1 g/dL (3.4-5.0); Anion Gap 13 mmol/L (6-16); Blood Urea Nitrogen 78 mg/dL (8-24); Bun/Creatinine Ratio 20.6 (12.0-20.0); CO2, Blood 26 mmol/L (21-32); Calcium, Blood 8.5 mg/dL (8.5-10.1); Chloride, Blood 109 mmol/L (98-108); Creatinine, Blood 3.79 mg/dL (0.60-1.20); Glomerular Filtration Rate 17 (60-); Glucose, Blood 154 mg/dL (70-99); Magnesium, Blood 2.2 mg/dL (1.6-2.4); Phosphorus, Blood 4.5 mg/dL (2.5-4.9); Potassium, Blood 3.1 mmol/L (3.5-5.5); Sodium, Blood 148 mmol/L (136-145)
[2019-01-15 04:04] LABS: International Normalized Ratio 5.15
--- NOTE | 2019-01-15 06:13 | NUR ---
SHIFT SUMARY NOTE PT REMAINS INTUBATED AT THIS TIME. PT VENT SETTINGS REMAIN AC 12, TV 450, FIO2 30%, PEEP 5. PT HAD A SPONTANIOUS BREATHING TRIAL AND DID WELL PER RT REPORT. PT HAS MAINTAINED SPO2 IN THE MID 90'S THROUGH THE NIGHT. PT HAS NOT BEEN ABLE TO FOLLOW ANY COMMANDS THROUGH THE NIGHT. PT WILL OPEN EYES AND OCCASIONALLY JERK HEAD IN DIRECTION OF VERBAL STIMULI. PT HAS NOT BEEN OBSERVED TO TRACK WITH EYES. PT CONTINUES TO REACT TO OBJECTS APPROACHING FIELD OF VIEW. PT CONTINUES TO HAVE NORRIS CATH IN PLACE. PT IS DRAINING CELAR YELLOW URINE. PT CONTINUES TO HAVE RECTAL TUBE IN PLACE AND IS DRAINING VERY DARK GREEN LIQUIDY STOOL. PT REMAINES IN A-FLUTTER WITH RATE IN THE 80-120'S WITH OCCASIONAL PVC'S. PT HAS BEEN HYPERTENSIVE THROUGH THE NIGHT AND HAS BEEN PROVIDED LABETALOL X2 TIMES THROUGH THE NIGHT WITH SOME EFFECT. PT CONTINUES TO HAVE BLOOD TINGED SPUTUM FROM ETT TUBE. WITH AM LABS PT WAS FOUND TO HAE A POTASSIUM LEVEL OF 3.1. DR WILKINSON CALLED AND INFORMED OF PT'S LAB VALUES, ORDER RECEIVED TO PROVIDE 50MEQ KCL X1. ORDER ENTERED RECEIVED. PT IS RECEIVING 50MEQ KCL AT 55ML/HR. PT IS OTHERWISE SALINE LOCKED. PT CONTINUES TO RECEIVE TUBE FEEDING OF NEPHRO SOLUTION AT GOAL RATE OF 25ML/HR. PT HAS HAD MINIMAL RESIDUALS THROUGHOUT THE NIGHT. WILL REPORT OFF TO ONCOMING DAY SHIFT NURSE.
--- NOTE | 2019-01-15 10:27 | NUR ---
EDUCATION: HAD EXTENSIVE CONVERSATION WITH PT'S SON, RE: PT'S CURRENT MEDICAL STATUS, PAST MEDICAL HX, ADVANCE DIRECTIVES, AGRICULTURE LABORER LIFE SUPPORT, TRACH/PEG TUBE PLACEMENT.
--- NOTE | 2019-01-15 19:16 | NUR ---
SHIFT SUMMARY PT REMAINS ON VENT AC12/450/5/30%. THERE IS NO CHANGES NEUROLOGICALLY THROUGHOUT SHIFT. TALKED EXTENSIVELY WITH FAMILY ABOUT CURRENT ILLNESS, PROGNOSIS, AND FURTHER PLAN OF CARE. UPDATED PALLIATIVE CARE RN WHO WILL TOUCH BASE WITH FAMILY ON THURSDAY.
--- NOTE | 2019-01-15 20:51 | NUR ---
[facility]CE[facility] PT REPORT FROM CELESTINE WRIGHT AND CELESTINE COLLINS. PT REMAINES INTUBATED AT THIS TIME. VENT SETTINGS ARE AC 12, TV 450, FIO2 30%, PEEP 5. PT SPO2 IS IN THE 90'S. PT IS NOT ON ANY SEDATION AT THIS TIME. PT IS SALINE LOCKED AT THIS TIME. PT IS RECEIVING TUBE FEEDING OF NEPHRO SOLUTION AT 25ML/HR. PT IS RECEIVING 200ML WATER BOLUSES Q4. PT HAS NORRIS CATH IN PLACE, DRAINING CLEAR YELLOW URINE AT THIS TIME. PT HAS RECTAL TUBE IN PLACE, CURRENTLY PATENT AND DRAINING DARK LIQUIDY STOOL. PT REMAINES IN A-FLUTTER, HR IS IRREGULAR IN THE 80-110 RANGE. PT IS HYPERTENSIVE AT TIMES INTO THE 180'S SYSTOLIC. LABETALOL PROVIDED WITH SOME EFFECT. PT IS UNABLE TO FOLLOW ANY COMMANDS AND IS NOT TRACKING ANY MOVEMENTS WITH EYES. PT APPEARS TO REACT TO OBJECTS APROACHING VISUAL FIELD AT TIMES. PT REMAINS IN RESTRAINTS AT THIS TIME. PT HAS BEEN OBSERVED TO MAKE GROSS MOVEMENTS OF EXTREMITIES. ASSUMED CARE OF PT AT THE TIME OF SHIFT REPORT. WILL CONTINUE TO MONITOR.
[2019-01-15 21:03] LABS: Potassium, Blood 3.4 mmol/L (3.5-5.5)
--- NOTE | 2019-01-15 21:19 | NUR ---
JAJA WILKINSON CALLED WITH THE RESULTS OR SODIUM AND POTASSIUM LABS. ORDER RECEIVED TO PROVIDE 20MEQ KCL IV X1 AND TO INCREASE FLUID BOLUS WITH TUBE FEEDING TO 300ML Q4 FROM 200ML Q4 AND TO PROVIDE 300ML FLUID BOLUS AT THIS TIME. ORDERS ENTERED RECEIVED. WILL CONTINUE TO MONITOR PT.
[2019-01-16 03:25] LABS: BASOPHILS ABSOLUTE AUTO 0.08 K/mm3 (0.00-0.23); BASOPHILS PERCENT AUTO 1 % (0-2); EOSINOPHILS ABSOLUTE AUTO 0.31 K/mm3 (0.00-0.68); EOSINOPHILS PERCENT AUTO 2 % (0-6); Hematocrit 30.9 % (37.0-53.0); Hemoglobin 9.5 g/dL (13.5-17.5); IMMATURE GRAN PERCENT AUTO 2 % (0-1); LYMPHOCYTES ABSOLUTE AUTO 1.89 K/mm3 (0.84-5.20); LYMPHOCYTES PERCENT AUTO 14 % (21-46); MONOCYTES ABSOLUTE AUTO 1.42 K/mm3 (0.16-1.47); MONOCYTES PERCENT AUTO 11 % (4-13); Mean Corpuscular HGB 30.2 pg (26.0-34.0); Mean Corpuscular HGB Conc 30.7 g/dL (31.5-36.5); Mean Platelet Volume 10.7 fL (9.1-12.4); NEUTROPHILS ABSOLUTE AUTO 9.56 K/mm3 (1.96-9.15); NEUTROPHILS PERCENT AUTO 71 % (41-73); Platelet Count 302 K/mm3 (150-400); RDW Coefficient Variation 14.7 % (11.7-14.2); RDW Standard Deviation 52.6 fL (35.1-46.3); Red Blood Cell Count 3.15 M/mm3 (4.30-5.90); White Blood Cell Count 13.56 K/mm3 (4.00-11.30)
[2019-01-16 03:27] LABS: Mean Corpuscular Volume 98 fL (80-100)
[2019-01-16 03:42] LABS: Alanine Aminotransfer (ALT/SGP 26 U/L (12-78); Albumin, Blood 2.9 g/dL (3.4-5.0); Albumin/Globulin Ratio 0.7 (0.8-1.8); Alk Phos 63 U/L (50-136); Anion Gap 7 mmol/L (6-16); Aspartate Aminotrans (AST/SGOT 52 U/L (12-37); Bilirubin, Direct 0.2 mg/dL (0.0-0.3); Bilirubin, Indirect 0.4 mg/dL (0.1-0.7); Bilirubin, Total 0.6 mg/dL (0.1-1.0); Blood Urea Nitrogen 76 mg/dL (8-24); Bun/Creatinine Ratio 24.8 (12.0-20.0); CO2, Blood 28 mmol/L (21-32); Calcium, Blood 8.5 mg/dL (8.5-10.1); Chloride, Blood 114 mmol/L (98-108); Creatinine, Blood 3.07 mg/dL (0.60-1.20); Glomerular Filtration Rate 22 (60-); Glucose, Blood 145 mg/dL (70-99); Phosphorus, Blood 3.8 mg/dL (2.5-4.9); Potassium, Blood 3.6 mmol/L (3.5-5.5); Sodium, Blood 149 mmol/L (136-145); Total Protein, Blood 6.9 g/dL (6.4-8.2)
[2019-01-16 04:23] LABS: International Normalized Ratio 3.92; Prothrombin Time Results 36.7 Sec (9.7-11.5)
--- NOTE | 2019-01-16 05:39 | NUR ---
SHIFT SUMAMRY NOTE PT REMAINS INTUBATED WITH NO SEDATION. PT VENT SETTINGS REMAIN AC 12, TV 450, FIO2 30% AND PEEP 5. PT HAS MAINTAINED SPO2 IN THE MID 90'S. PT WAS GIVEN A SPONTANIOUS BREATHING TRIAL. PT VITALS REMAINED STABLE THROUGH BREATHING TRIAL EXCEPT PT WOULD HAVE PERIODS OF APNEA FOR APPROX 30 SECONDS PER RT REPORT. PT REPLACED ON AC SETTING AFTER SPONT TRIAL. PT HAS BEEN SALINE LOCKED OVERNIHGT AFTER INFUSION OF 20MEQ KCL. PT CONTINUES TO RECEIVE TUBE FEEDING OF NEPHRO SOLUTION AT GOAL RATE OF 25ML/HR. PT HAS HAD MINIMAL RESIDUALS OVERNIGHT. PT IS RECEIVING FREE WATER BOLUSES OF 300ML Q4. PT HAD APPROX 650ML URINE OUTPUT OVERNIGHT OF CLEAR YELLOW URINE. PT HAD APPROX 200ML OF LIQUID DARK STOOL OUTPUT FROM RECTAL TUBE. NO ACUTE CHANGES OVERNIGHT. WILL REPORT OFF TO ONCOMING DAY SHIFT NURSE.
[2019-01-16 05:47] LABS: PCO2 Arterial 42.2 mmHg (35-45); PO2 Arterial 98.4 mmHg (80-100); pH Blood Arterial 7.39 (7.35-7.45)
--- NOTE | 2019-01-16 08:00 | NUR ---
ASSUMED CARE RECIEVED REPORT FROM GRACIE, PT IS CURRENTLY ON VENTILATOR A12/450/5/30% WITH NO CURRENT GTTS. PT IS NOT ALERT OR ORIENTED, UNAWARE OF SURROUNDINGS, BUT IS AROUSED. PT RESPONDS TO BRIGHT LIGHTS, TOUCH OF FACE/ORAL CAVITY, AND BABINSKI. PT DOES NOT TRACK OR MAKE EYE CONTACT, BUT OPENS SPONTANEOUSLY. PT IS CALM AT THIS TIME.
--- NOTE | 2019-01-16 18:23 | NUR ---
SHIFT SUMMARY PT REMAINS ON VENT AC12/450/5/30%. NO SIGNIFICANT EVENTS OCCURED TODAY; PT STILL SHOWING SAME NEUROLOGICAL DEFICITS. AND SON AT BEDSIDE FOR A FEW HOURS AND THERE SEEMS TO BE PROGRESS IN REGARDS TO COMPREHENSION OF THE SITUATION. PT HYPERTENSIVE WHEN STIMULATED. PT REMAINS IN AFLUTTER WITH PVC'S.
--- NOTE | 2019-01-17 02:07 | NUR ---
ASSUMING CARE AND PROGRESS NOTE. RECEIVED PT REPROT FROM CELESTINE WRIGHT. PT REMAINS INTUBATED WITH NO SEDATION. PT VENT SETTINGS ARE AC 12, TV 450, FIO2 30%, AND PEEP 5. PT SPO2 IS MAINTAINING IN THE MID 90'S. PT IS UNABLE TO FOLLOW COMMANDS. PT CONTINUES TO JERK HEAD BACK AND FORTH AT TIMES. PT APPEARS TO BE LESS RESPONSIVE TO VERBAL STIMULI THAN ON PREVIOUS SHIFTS. PT IS LESS REACTIVE TO OBJECTS APPROACHING VISUAL FIELD THAN ON PREVIOUS SHIFTS. PT HAS NORRIS CATH IN PLACE, CURRENTLY PATENT AND DRAINING CLEAR YELLOW URINE. PT HAS RECTAL TUBE IN PLACE, CURRENTLY PATENT AND DRAINING DARK LIQUIDY STOOL. PT IS RECEIVING TUBE FEEDING OF NEPHRO SOLUTION AT GOAL RATEOF 25ML/HR AND IS RECEIVING 300ML Q4 FREE WATER BOLUSES. PT HAS HAD INIMAL RESIDUALS WITH RESIDUAL CHECKS. AT THE TIME CARE ASSUMED PT IS HYPERTENSIVE IN THE 170'S SYSTOLIC. PT BP MAINTAINED IN THE 160-170'S AND PT WAS PROVIDED LABETALOL WITH SOME EFFECT. AT APPROX 2210 PT WAS NOTED TO HAVE SEIZURE LIKE ACTIVITY LOCALIZED TO THE RT SIDE WITH RHYTHMIC JERKING OF LEG, ARM, AND HEAD. SEIZURE LIKE ACTIVITY WAS MAINTAINING. DR GRANT CALLED AND INFORMED OF SEIZURE LIKE ACTIVITY. ORDER RECEIVED TO PROVIDE 1-4MG OF ATIVAN Q1 PRN AND TO BEGIN PROPOFOL IF ATIVAN INEFFECTIVE. ORDER ALSO RECEIVED FOR AM EEG. ORDER ENTERED RECEIVED. PT PROVIDED 2MG OF ATIVAN SEIZURE LIKE ACTIVITY WAS MAINTAINING. 2MG ATIVAN APPEARED TO HAVE NO EFFECT AND SEIZURE LIKE ACTIVITY CONTINUED. PT WAS PROVIDED ADDITIONAL 4MG ATIVAN. SHORTLY AFTER ADMINISTRATION OF ATIVAN PT SEIZURE LIKE ACTIVITY ENDED. AT APPROX 2300 PT WAS NOTED TO HAVE SYSTOLIC BP IN THE 70'S. PT WAS PROVIDED 250ML FLUID CHALLENGE. THROUGH FLUID CHALLENGE PT BP INCREASED TO THE 100'S SYSTOLIC. AFTER COMPLETION OF FLUID CHALLENGE PT BP WAS NOTED TO BE IN THE 80'S SYSTOLIC. DR GRANT WAS CALLED AND INFORMED OF PT'S HYPOTENSION AND RESPONSE TO FLUID CHALLENGE. ORDER RECEIVED TO PROVIDE 1L BOLUS OF LR AND TO RUN LR AT 100ML/HR AFTER COMPLETION OF BOLUS. ORDERS ENTERED RECEIVED. AFTER COMPLETION OF BOLUS AND ADMINISTRATION OF LR AT 100ML/HR PT BP IS MAINTAINING IN THE 110'S SYSTOLIC. ASSUMED CARE OF PT AT THE TIME OF SHIFT REPORT
[2019-01-17 03:59] LABS: Hematocrit 28.5 % (37.0-53.0); Hemoglobin 8.9 g/dL (13.5-17.5)
[2019-01-17 04:13] LABS: Albumin, Blood 2.5 g/dL (3.4-5.0); Anion Gap 7 mmol/L (6-16); Blood Urea Nitrogen 66 mg/dL (8-24); Bun/Creatinine Ratio 28.2 (12.0-20.0); CO2, Blood 27 mmol/L (21-32); Chloride, Blood 113 mmol/L (98-108); Creatinine, Blood 2.34 mg/dL (0.60-1.20); Glomerular Filtration Rate 30 (60-); Glucose, Blood 128 mg/dL (70-99); Magnesium, Blood 1.9 mg/dL (1.6-2.4); Phosphorus, Blood 3.6 mg/dL (2.5-4.9); Potassium, Blood 3.3 mmol/L (3.5-5.5); Sodium, Blood 147 mmol/L (136-145)
[2019-01-17 04:14] LABS: International Normalized Ratio 2.8
--- NOTE | 2019-01-17 06:58 | NUR ---
SHIFT SUMMARY NOTE PT REMAINS INTUBATED AT THIS TIME. PT VENT SETTINGS REMAIN AC 12, TV 450, FIO2 30%, AND PEEP 5. PT SPO2 IS MAINTAINING IN THE MID 90'S. WITH FINAL ASSESSMENT AT APPROX 0550 PT ETT TUBE WAS NOTED TO HAVE DISPLACED TO APPROX 25.5 CM. TUBE WAS ADVANCED TO PREVIOUS OF 28CM BY RT. DR GRANT WAS CALLED AND INFORMED, ORDER RECEIVED FOR STAT CHEST X-RAY. X-RAY PERFORMED ORDERED. AWAITING RESULTS AT THIS TIME. PT BP CONTINUES TO REMAIN LABILE. PT HAS NOT HAD ANY ADDITIONAL EPISODES OF HYPOTENSION AFTER PREVIOUSLY NOTED EPISODE OF HYPOTENSION. PT REMAINS IN A-FLUTTER HR HAS FLUCTUATED THROUGH THE NIGHT BETWEEN THE 80-110'S THROUGH MOST OF THE NIGHT. PT IS RECEIVING LR AT 100ML/HR AND 20MEQ KCL AT THIS TIME. THERE HAS BEEN NO FURTHER EPISODES OF SEIZURE LIKE ACTIVITY. PT CONTINUES TO HAVE NORRIS CATH IN PLACE, PATENT AND DRAINING TO GRAVITY. PT HAD APPROX 650ML OF URINE OUTPUT. PT RECTAL TUBE REMAINS IN PLACE. PT HAD APPROX 300ML OF LIQUID STOOL OUTPUT. WILL REPORT OFF TO [facility] DAY SHIFT NURSE.
--- NOTE | 2019-01-17 07:30 | NUR ---
ASSUMED CARE OF THE PT. ONE UNIT RBC INFUSING AND ELIANA WELL. PT. AWAKE AND SEEMS ORIENTED. NODS YES/NO. CALM, DENIES PAIN. VENT SETTINGS ON SPONT WITH PS 15, FIO2 30%. SAO2 >95%. LUNGS CLEAR ANTERIORLY BUT QUITE DEC. IN BASES. SC. BLOODY SECRETIONS FROM ETT. MONITOR CON'T A. FIB WITH CONTROLLED RATE. VSS. AFEBRILE.ELIANA TUBE FEEDING AT 30ML/HR. RECTAL TUBE IN PLACE. NORRIS WITH CL. YELL U/O. MARCE PAS IN PLACE. 4X4 MUSTACHE DRSG CLEAN/DRY. NASAL ROCKETS MARCE. IN PLACE. EXTENSIVE EDEMA CONT T/O INCLUDING SCROTUM.
--- NOTE | 2019-01-17 07:30 | NUR ---
ASSUMED CARE OF PATIENT; SEE ASSESSMENT CHARTING FOR DETAILS. PATIENT REMAINS ON VENTILATOR WITH SETTINGS: A/C 12, TV 450, PEEP 5 AND FIO2 30%. REMAINS OFF SEDATION; RESPONSIVE TO PAIN. MOVES NECK/HEAD BACK AND FORTH FREQUENTLY AND WILL OPEN EYES RANDOMLY BUT DOES NOT APPEAR TO FOCUS, ETC. BILAT. SOFT WRIST RESTRAINTS IN PLACE TO PREVENT SELF EXTUBATION. LUNGS CLEAR BUT DIMINISHED IN BASES. OGT INFUSING WITH NEPRO AT 25ML/HR; NO RESIDUAL NOTED; ALSO RECEIVING 300CC/H20 EVERY 4 HOURS (FREE WATER). NORRIS DRAINING FAIR AMOUNTS OF MED. YELLOW URINE. RECTAL TUBE IN PLACE AND DRAINING MOD. AMOUNT OF AIR WELL SMALL AMOUNTS OF BILE/DARK LIQUID STOOL. KCL RIDER INFUSING WELL LR AT 100ML/HR; BP REMAINS LABILE BUT MORE STABLE THAN DURING NIGHT. FAMILY TO MEET WITH PALLIATIVE CARE, PASTORAL CARE AND DR. JUAREZ, TODAY, TO DETERMINE POC AND IF FAMILY WANTS TO PURSUE TRACH/PEG TUBE OR COMFORT CARE STATUS; CURRENTLY IS DNR STATUS.
--- NOTE | 2019-01-17 08:40 | NUR ---
PATIENTS SON, JEANNA, HERE; VERY SUPPORTIVE; RN UPDATED HIM ON PATIENTS STATUS.
--- NOTE | 2019-01-17 09:00 | NUR ---
DR. JUAREZ HERE; SPOKE IN DETAIL TO PATIENTS' SON AFTER ASSESSING PATIENT.
--- NOTE | 2019-01-17 10:00 | NUR ---
DR. JUAREZ HAS BEEN INTO TO SEE PT. PT. STILL REQUESTS TO HAVE TRACH SO WILL PLAN FOR THIS WEEK. DR. JUAREZ TO CONSULT DR. VORA. DR. JUAREZ TALKED WITH ANNIKA THE DAUGHTER AND SHE IS AWARE OF THE PLAN. LIDOCAINE PATCH TO LEFT HIP.
--- NOTE | 2019-01-17 10:00 | NUR ---
IVF REDUCED TO 50ML/HR FROM 100ML/HR. PATIENT REMAINS ON VENT. WITHOUT CHANGES NOTED; REMAINS OFF CONT. SEDATION. FENTANYL 50MCG GIVEN IVT PRN RESTLESSNESS; STARTS MOVING HEAD SIOE TO SIDE (OVER//OVER) AND WILL OPEN EYES BRIEFLY AT TIMES; MEDICATION HELPS PATIENT TO BE MORE RESTFUL. PALLIATIVE CARE NURSE IN TO SPEAK TO SON AND ALLOW SON TO VENT OR ASK QUESTIONS. FREE WATER (OGT) CHANGED FROM 300ML EVERY 4 HOURS TO 250ML EVERY 2 HOURS; TOLERATING WELL.
--- NOTE | 2019-01-17 10:51 | NUR ---
VENT- PT TRYING TO SLEEP AND TV DECREASDING TO 200. PLACED BACK ON AC 12 400 30%. SAO2 100%.
--- NOTE | 2019-01-17 11:45 | NUR ---
PATIENTS' SPOUSE ARRIVED; DISCUSSION WITH PALLIATIVE CARE AND PASTORAL CARE STAFF. DR. KENNEDY QUIROZ ARRIVED AND HAD LONG DISCUSSION WITH PATIENTS' SPOUSE AND 2 SONS; REASSURED SPOUSE NOT TO FEEL GUILITY ABOUT ANY DECISION SHE MAKES; ENCOURAGED FAMILY TO TAKE THEIR TIME AND DISCUSS POC. REQUESTED THEY TAKE INTO CONSIDERATION WHAT PATIENT WOULD WANT IF HE W3AS ABLE TO MAKE DECISION RE: HIS FUTURE CARE.
--- NOTE | 2019-01-17 11:52 | NUR ---
Pt visit this AM. Pt is resting in bed with occasional eyes opening and turning his head from side to side. FLACC score is 2/10. Pt's son is present during visit. Engaged in therapeutic conversation regarding goals of care. Listened as son expressed his feelings towards Pt's current condition. Son reports his dad would not want to be living in his current condition. He reports that he is leaning towards comfort care but does not want to initiate this conversation with his mother (Pt's ). Listened as he expressed frustrations with his other and how he was raised. Pt reports considerable animosity toward his mother and feeling may be mutual from her as well. He reports concerns that she may be experiencing some mental health issues and has been for quite some time. Listened as he discussed Pt's and mother's current living situation with mother being a horder and current structual issues with the home. Pt's son expresses grattitude towards visit and reports no other concerns. Spoke with Dr Bradley and he reports comfort care conversation would be appropriate to have with family. Spoke with palliative care cover cutter machineyovana Childs and she is agreeable to be present during visit when Pt's is present. Naz and Pt's have established a good rapport. Plan: Will have discussion regarding goals of care including comfort care option when rest of family arrives.
--- NOTE | 2019-01-17 13:00 | NUR ---
PRODUCT SAFETY SPECIALIST HERE; PREPARING PATIENT FOR EEG READING. FAMILY HAD DISCUSSION FOR ABOUT 10/MIN RE: PATIENTS' CARE; LEFT ROOM FOR EEG AND WILL RETURN LATER.
--- NOTE | 2019-01-17 14:30 | NUR ---
EEG COMPLETED. FENTANYL GIVEN DURING SETUP D/T PATIENTS' RESTLESSNESS. .
--- NOTE | 2019-01-17 16:00 | NUR ---
R.T. (X2) HERE TO RETAPE ETT TUBE; SLIDING, ETC. MUCH MORE SECURE; POSITIONED 27 AT LIP.
--- NOTE | 2019-01-17 16:33 | NUR ---
Per request, I met with Edna, two sons, and Romie from Palliative care to discuss POC going forward. Edna was immediately defensive, saying "I've known all along this wasn't going to end well." As I gently attempted to facilitate conversation with her family, Edna kept stopping me with statements like, "I hope you don't expect me to make a decision today" and "I can't just pull the plug like that." Sons said very little. Edna asked for some time alone with her sons to discuss POC. Visit ended. Interestingly, I met with sons this morning before Edna arrived. They both verbalized to me that pt, "would not want this." They stated that they are hoping Edna will allow their father to with peace and dignity. Thoughout both conversations, Cameron was thrashing his head back and forth. Sons pointed to this and said, "He's suffering." Edna agreed, but did not want to discuss it. I will remain available.
--- NOTE | 2019-01-17 18:30 | NUR ---
SUMMARY: FAMILY LEAVING FOR THE NIGHT; NO DECISIONS SHARED WITH RN. REMAINS ON VENT; SETTINGS UNCHANGED. BILAT. SOFT WRIST RESTRAINTS IN PLACE; ROM DONE WITH TURNING, ETC. F/C WITH 750 U/O; 100ML OF DK BILE COLORED STOOL FROM RECTAL TUBE. OVERALL STATUS UNCHANGED. ATIVAN IV X1 TODAY ANF FENTANYL FREQUENTLY.
--- NOTE | 2019-01-17 23:19 | NUR ---
PROPOFOL RESTART PT STACKING BREATHS WHILE RAPIDLY TURNING HEAD SIDE TO SIDE AND BITING ETT. MULTIPLE DOSES OF FENTANYL ADMINISTERED BUT ONLY LAST 15 MINUTES. LUNG SOUNDS UNCHANGED/TRACH MIDLINE, BP IS HYPERTENSIVE AND HR 100-120. NO SIGNS OF SZ ACTIVITY, ARMS ARE FLACID AND NO ABNORMAL MOVEMENT OF EXTREMITIES (OTHER THAN HEAD) NOTED. DISCUSSED 01/16 PROPOFOL ORDER ON EMAR WITH ALMA LUNDBERG. RESTARTED AT 25MCG/KG/MIN FOR VENT COMPLIANCE.
[2019-01-18 03:48] LABS: BASOPHILS ABSOLUTE AUTO 0.04 K/mm3 (0.00-0.23); BASOPHILS PERCENT AUTO 0 % (0-2); EOSINOPHILS ABSOLUTE AUTO 0.35 K/mm3 (0.00-0.68); EOSINOPHILS PERCENT AUTO 3 % (0-6); Hematocrit 25.8 % (37.0-53.0); Hemoglobin 8.1 g/dL (13.5-17.5); IMMATURE GRAN ABSOLUTE AUTO 0.14 K/mm3 (0.00-0.10); IMMATURE GRAN PERCENT AUTO 1 % (0-1); LYMPHOCYTES ABSOLUTE AUTO 1.57 K/mm3 (0.84-5.20); LYMPHOCYTES PERCENT AUTO 14 % (21-46); MONOCYTES ABSOLUTE AUTO 0.85 K/mm3 (0.16-1.47); MONOCYTES PERCENT AUTO 8 % (4-13); Mean Corpuscular HGB 30.8 pg (26.0-34.0); Mean Corpuscular HGB Conc 31.4 g/dL (31.5-36.5); Mean Corpuscular Volume 98 fL (80-100); Mean Platelet Volume 10.7 fL (9.1-12.4); NEUTROPHILS ABSOLUTE AUTO 8.37 K/mm3 (1.96-9.15); NEUTROPHILS PERCENT AUTO 74 % (41-73); Platelet Count 298 K/mm3 (150-400); RDW Coefficient Variation 14.2 % (11.7-14.2); RDW Standard Deviation 50.7 fL (35.1-46.3); Red Blood Cell Count 2.63 M/mm3 (4.30-5.90); White Blood Cell Count 11.32 K/mm3 (4.00-11.30)
[2019-01-18 04:03] LABS: International Normalized Ratio 2.77; Prothrombin Time Results 26.8 Sec (9.7-11.5)
[2019-01-18 04:04] LABS: Albumin, Blood 2.5 g/dL (3.4-5.0); Anion Gap 6 mmol/L (6-16); Blood Urea Nitrogen 55 mg/dL (8-24); Bun/Creatinine Ratio 29.4 (12.0-20.0); CO2, Blood 27 mmol/L (21-32); Calcium, Blood 8.1 mg/dL (8.5-10.1); Chloride, Blood 112 mmol/L (98-108); Creatinine, Blood 1.87 mg/dL (0.60-1.20); Glomerular Filtration Rate 38 (60-); Glucose, Blood 119 mg/dL (70-99); Magnesium, Blood 1.8 mg/dL (1.6-2.4); Phosphorus, Blood 3.4 mg/dL (2.5-4.9); Potassium, Blood 3.2 mmol/L (3.5-5.5); Sodium, Blood 145 mmol/L (136-145)
--- NOTE | 2019-01-18 06:21 | NUR ---
SHIFT SUMMARY SEE PREVIOUS NOTES FOR SHIFT. PT REMAINS INTUBATED AT AC12/450/30%/5. SEDATION VIA PROPOFOL AT 20MCG/KG/MIN D/T VENT ASYNCHRONY/STACKING BREATHS EARLY ON THE SHIFT. LR AT 50ML/HR AND TF AT GOAL OF 25ML/HR WITH 250ML H2O FLUSH Q 2 HOURS. MAX RESIDUAL OF 20ML AND RECTAL TUBE IN PLACE. NEURO STATUS UNCHANGED, PT OPENS EYES SPONTANEOUSLY/TO NOISE BUT DOES NOT FOLLOW COMMANDS OR TRACK WITH EYES. BP HYPERTENSIVE PRIOR TO STARTING PROPOFOL BUT NOW SBP 140-150, ECG SHOWS AFIB/FLUTTER AND O2 SATS >95%. NO FAMILY IN OVERNIGHT.
--- NOTE | 2019-01-18 07:45 | NUR ---
INITIAL ASSESSMENT PATIENT INTUBATED AND ON SEDATION. PATIENT RESPONDS TO PAINFUL STIMULI AND NURSING CARE WITH MOVING OF HEAD AND GRIMACING. PATIENT IS NOT WITHDRAWING ANY OF HIS EXTREMITIES TO PAINFUL STIMULI. PATIENT NOT FOLLOWING ANY SIMPLE COMMANDS AT THIS TIME. NO TRACKING WHEN EYES OPENED. PUPILS REACT BRISKLY TO LIGHT. PATIENT SATTING 90% AND GREATER ON VENT SETTINGS OF AC 12, TV 450, PEEP 5, 30% FIO2. EXPIRATORY WHEEZES NOTED T/O LUNG LOBES. PATIENT HAS OCCASIONAL PRODUCTIVE COUGH. SMALL AMOUNT OF THICK, PINK SPUTUM BEING SUCTIONED FROM ETT. PATIENT IN A. FLUTTER, HR 90S TO LOW 100S. BP STABLE. SCDS IN PLACE. ABDOMEN MILDLY DISTENDED, SOFT, WITH HYPERACTIVE BOWEL SOUNDS. PATIENT TOLERATING TF AT GOAL RATE OF 25 MLS/ HOUR WITH 250 ML WATER FLUSH Q2H. RESIDUAL OF ZERO THIS AM. RECTAL TUBE IN PLACE, DRAINING DARK BROWN, LIQUID STOOL. NORRIS CATHETER DRAINING ADEQUATE AMOUNT OF YELLOW COLORED URINE. SCATTERED BRUISES NOTED T/O BODY. L ARM/ HAND SLIGHTLY SWOLLEN. PROPOFOL INFUSING AT 20 MCG/ KG/ MINUTE, LR AT 50 MLS/ HOUR. PATIENT RECEIVING IV POTASSIUM FOR LEVEL OF 3.2 THIS AM. BED LOW. WILL CONTINUE TO MONITOR PATIENT FREQUENTLY THROUGHOUT SHIFT.
--- NOTE | 2019-01-18 12:11 | NUR ---
PATIENT REMAINS VENTILATED AND ON SEDATION. SEDATION PLACED ON STANDBY FOR SHORT TIME THIS AM PER REQUEST OF DR. JUAREZ. PATIENT AGITATED, ASYNCHRONOUS WITH VENT, BITING ON BITE BLOCK, NEURO STATUS REMAINED THE SAME. PATIENT PLACED BACK ON PROPOFOL, FENTANYL DC'D AND PRN DILAUDID ORDERED. PATIENT NOW SEEMS MUCH MORE COMFORTABLE AND SYNCHRONOUS WITH VENT. PATIENT AFEBRILE. PATIENT GIVEN PRN DILAUDID SHORT TIME AGO. PATIENT REMAINS SATTING WELL ON SAME VENT SETTINGS. LUNGS CLEAR T/O, LOWER LOBES DIMINISHED. PATIENT REMAINS IN A. FLUTTER, HR 80S TO LOW 100S. BP STABLE. BOWEL SOUNDS NORMOACTIVE. RESIDUAL OF ZERO. NORRIS REMAINS DRAINING YELLOW URINE. NO CHANGE IN SKIN. PROPOFOL AT 20 MCG/ KG/ MINUTE. NO OTHER ACUTE CHANGES TO NOTE ON AT THIS TIME. WILL CONTINUE TO MONITOR.
--- NOTE | 2019-01-18 13:47 | NUR ---
INFORMED DR. WILKINSON OF NEW POTASSIUM LEVEL. ORDERS RECEIVED.
--- NOTE | 2019-01-18 14:23 | NUR ---
DR. JUAREZ IN ROOM TO SPEAK WITH PATIENT'S AND HER SISTER. UPDATED ON PATIENT STATUS/ CONDITION. FAMILY HAD MANY QUESTIONS THAT WERE ANSWERED BY THE DOCTOR. STATED THAT THEY HAVE DECIDED THEY WOULD LIKE TO GO COMFORT CARE BUT NOT UNTIL HER SONS GET HERE FROM [place], WHICH WILL PROBABLY BE HERE TOMORROW. STATED WE WOULD CONTINUE TO TREAT AND KEEP COMFORTABLE UNTIL THEY ARE READY TO GO COMFORT CARE.
--- NOTE | 2019-01-18 16:08 | NUR ---
Spiritual care visit conducted. Patient's , Edna and her sisiter were present in the patient's room. I talked with them both about the end of life decision making for the patient. They said that their plan is that as soon as the patient's sons can come to [place] they will give permission to extubate the patient. They are preparing their hearts and minds for this event. Edna had a tearful moment surrounded by a prayer and some funny stories. Edna and her sister thanked me for the visit. I continue to remain available to the family.
--- NOTE | 2019-01-18 16:30 | NUR ---
PATIENT RESTING QUIETLY IN BED. NO SIGNS OF PAIN. PATIENT AFEBRILE. NO ACUTE CHANGES TO REPORT ON. VSS. AT BEDSIDE. WILL CONTINUE TO MONITOR.
--- NOTE | 2019-01-18 19:05 | NUR ---
SHIFT SUMMARY PATIENT REMAINS RESPONDING TO NURSING CARE AND PAIN WITH SHAKING OF HEAD BACK AND FORTH AND FROWNING. PATIENT IS NOT FOLLOWING COMMANDS OR TRACKING. PATIENT GIVEN PRN FENTANYL AND DILAUDID TO HELP WITH SIGNS OF PAIN. PATIENT ON AND OFF PROPOFOL TO HELP WITH VENT COMPLIANCE- OFF TO ASSESS NEURO STATUS. PATIENT HAS REMAINED AFEBRILE. PATIENT HAS REMAINED SATTING WELL ON SAME VENT SETTINGS. PATIENT HAS REMAINED IN A. FLUTTER, HR 80S TO LOW 100S. BP HAS REMAINED STABLE. PATIENT REMAINS TOLERATING TF AND FLUSH AT GOAL. RESIDUALS ZERO T/O DAY. RECTAL TUBE DRAINED 150 CC LIQUID STOOL THIS SHIFT. NORRIS REMAINS DRAINING YELLOW URINE. NO CHANGE TO SKIN. PROPOFOL REMAINS INFUSING AT 20 MCG/ KG/ MINUTE. PATIENT RECEIVED 60 MEQ POTASSIUM THIS SHIFT, 25 ALBUMIN AND 80 MG OF LASIX. PLAN IS FOR PATIENT TO GO COMFORT CARE TOMORROW PER FAMILY. BED LOW, CALL LIGHT IN REACH.
--- NOTE | 2019-01-18 19:15 | NUR ---
ASSUMED CARE ASSUMED CARE OF PATIENT. REMAINS INTUBATED- AC 12, TV 450, PEEP 5, FIO2 30%. SEDATED WITH PROPOFOL AT 20MCG/KG/MIN. PT OPENS EYES TO STIMULI. PUPILS ARE 3MM, SLUGGISH, AND EYES ARE DEVIATED DOWNWARDS. MOVES HEAD BACK AND FORTH. PULLS ARMS UP TO CORE WITH SUCTIONING. GAG AND COUGH NOTED. NOT FOLLOWING ANY COMMANDS. BILATERAL SOFT WRIST RESTRAINTS IN PLACE. MONITOR SHOWS AFLUTTER, RATE 60-70s. BP STABLE. OG WITH NEPRO 1.8 AT GOAL RATE OF 25CC/HR WITH 250CC H20 Q2H FLUSHES. RECTAL TUBE IN PLACE WITH LIQUID BROWN STOOL. NORRIS PATENT AND DRAINING MODERATE AMOUNTS OF PALE YELLOW-GREEN URINE. PAS TO BLE. RUE PICC NOTED. SCATTERED BRUISING NOTED. SEE SHIFT ASSESSMENT FOR FULL ASSESSMENT.
--- NOTE | 2019-01-18 22:25 | NUR ---
INCREASED URINE OUTPUT/CALL TO MD URINE OUTPUT OF 3000CC NOTED SINCE 1900. URINE IS PALE YELLOW-GREEN. DR. JUAREZ NOTIFIED OF INCREASED OUTPUT- NEW ORDERS RECEIVED.
[2019-01-18 23:11] LABS: Bun/Creatinine Ratio 26.8 (12.0-20.0); Calcium, Blood 8.3 mg/dL (8.5-10.1); Creatinine, Blood 1.79 mg/dL (0.60-1.20); Potassium, Blood 3.2 mmol/L (3.5-5.5)
[2019-01-19 03:18] LABS: BASOPHILS ABSOLUTE AUTO 0.05 K/mm3 (0.00-0.23); BASOPHILS PERCENT AUTO 1 % (0-2); EOSINOPHILS ABSOLUTE AUTO 0.33 K/mm3 (0.00-0.68); EOSINOPHILS PERCENT AUTO 3 % (0-6); Hematocrit 25.1 % (37.0-53.0); IMMATURE GRAN ABSOLUTE AUTO 0.09 K/mm3 (0.00-0.10); IMMATURE GRAN PERCENT AUTO 1 % (0-1); LYMPHOCYTES ABSOLUTE AUTO 1.45 K/mm3 (0.84-5.20); LYMPHOCYTES PERCENT AUTO 14 % (21-46); MONOCYTES PERCENT AUTO 7 % (4-13); Mean Corpuscular HGB 30.9 pg (26.0-34.0); Mean Corpuscular HGB Conc 31.9 g/dL (31.5-36.5); Mean Corpuscular Volume 97 fL (80-100); Mean Platelet Volume 10.8 fL (9.1-12.4); NEUTROPHILS PERCENT AUTO 75 % (41-73); Platelet Count 305 K/mm3 (150-400); RDW Standard Deviation 50.2 fL (35.1-46.3); Red Blood Cell Count 2.59 M/mm3 (4.30-5.90); White Blood Cell Count 10.52 K/mm3 (4.00-11.30)
[2019-01-19 03:33] LABS: Albumin, Blood 2.8 g/dL (3.4-5.0); Anion Gap 7 mmol/L (6-16); Blood Urea Nitrogen 47 mg/dL (8-24); Bun/Creatinine Ratio 26.3 (12.0-20.0); CO2, Blood 27 mmol/L (21-32); Chloride, Blood 109 mmol/L (98-108); Creatinine, Blood 1.79 mg/dL (0.60-1.20); Glomerular Filtration Rate 40 (60-); Glucose, Blood 130 mg/dL (70-99); Magnesium, Blood 1.6 mg/dL (1.6-2.4); Phosphorus, Blood 3.6 mg/dL (2.5-4.9); Potassium, Blood 3.6 mmol/L (3.5-5.5); Sodium, Blood 143 mmol/L (136-145)
[2019-01-19 03:38] LABS: Prothrombin Time Results 46.8 Sec (9.7-11.5)
[2019-01-19 03:39] LABS: International Normalized Ratio 5.12
--- NOTE | 2019-01-19 06:39 | NUR ---
SHIFT SUMMARY NO ACUTE CHANGES DURING NOC. REMAINS INTUBATED. SEDATED WITH PROPOFOL BETWEEN 20-30MCG/KG/MIN- NOW @ 25MCG/KG/MIN. ALSO MEDICATED WITH DILAUDID 1MG IV X 1 DURING SHIFT AN ADJUNCT TO SEDATION. NO NEUROLOGICAL CHANGES NOTED. PT OPENS EYES TO NOXIOUS STIMULI. GROSS MOTOR MOVEMENT NOTED IN UPPER EXTREMITITES. WITHDRAWS TO NOXIOUS STIMULI. BILATERAL SOFT WRIST RESTRAINTS REMAIN IN PLACE. OG WITH TUBE FEEDING AT GOAL RATE OF 25CC/HR. RESIDUAL CHECKS Q4H- RESIDUALS BETWEEN 0-20CC. NORRIS PATENT AND DRAINING TO GRAVITY. PAS TO BLE. RECEIVING 500MG MAGNESIUM SULFATE THIS AM PER ORDER. ALSO RECEIVED KCL 40mEq PER OG THIS SHIFT. DR. JUAREZ NOTIFIED OF CRITICALLY HIGH INR THIS AM AND NEW ORDER RECEIVED TO DC COUMADIN. PLAN IS TO CHANGE PT TO COMFORT CARE THIS AM. WILL REPORT TO DAY SHIFT RN WHEN AVAILABLE.
--- NOTE | 2019-01-19 09:38 | NUR ---
0700: CARE ASSUMED, ASSESSMENT COMPLETED. PROPOFOL 25MCG/KG/MIN, VENT SETTNGS AC12/450/30%/5, PT'S RR 12-20, SPO2 HIGH 90'S, Vt 400-500. PT RESTING QUIETLY WITH NO AGITATION NOTED, NOLVIA. 0840: DR. JUAREZ AT BEDSIDE FOR ASSESSMENT, PROPOFOL OFF AT THIS TIME FOR SEDATION VACATION. 0920: VENT ON SPONTANEOUS MODE FOR TRIAL BY RT. PT STACKING BREATHS, HYPERTENSIVE, COUGHING, EYES OPEN, TURNING HEAD BACK AND FORTH. NOLVIA, NO TRACKING, PT DOES NOT FOLLOW COMMANDS, CONTINUES TO RESPOND TO PAIN WITH GRIMACING. PROPOFOL RESUMED AT 25MCG/KG/MIN. RT AT BEDSIDE, VENT BACK TO AC MODE WITH PREVIOUS SETTINGS. DR. JUAREZ AWARE OF PT'S RESPONSE.
--- NOTE | 2019-01-19 15:05 | NUR ---
1000: PT RESTING QUIETLY AT THIS TIME WITH NO AGITATION OR RESTLESSNESS, APPEARS COMFORTABLE WITH PROPOFOL AT 25MCG/KG/MIN. VS REMAIN STABLE, PT REPOSITIONED. 1230: ORAL CARE COMPLETED, MEDICATIONS ADMINISTERED. VS STABLE, PT TOLERATING TUBE FEEDINGS WELL, NO RESIDUAL AT THIS TIME. PT REPOSITIONED. 1400: AT BEDSIDE AT THIS TIME, NO CHANGES IN PATIENT STATUS.
--- NOTE | 2019-01-19 17:20 | NUR ---
1600: ORAL CARE COMPLETED, PT REPOSITIONED, REMAINS CALM WITH NO AGITAITON/RESTLESSNESS NOTED. VSS, VENT SETTINGS UNCHANGED. AND SON AT BEDSIDE, TALK BY AND SON OF EXTUBATION EITHER LATER THIS EVENING WHEN SECOND SON ARRIVES OR TOMORROW MORNING.
--- NOTE | 2019-01-19 19:35 | NUR ---
ASSESSMENT PT CONT [facility]. SEDATED WITH PROPOFOL AT 25 MCQ. AT BEDSIDE STATES,"I DON'T THINK WE ARE GOING TO GO COMFORT CARE UNTIL MORNING. I'M WAITING FOR MY SON AND IT IS GETTING LATE". EXPLAINED TO WHAT WLL HAPPEN WHEN PT CHANGES TO COMFORT CARE. PT COUGHING, NOT FOLLOWING INSTRUCTIONS. OPENS EYES BUT DOES NOT TRACK. LUNGS CLEAR ON THE VENT. VENT SETTINGS AC 12 TV 450 PEEP 5 FIO2 25%. SUCTIONED SCANT AMT VIA ET TUBE. HEART RATE IRREGULAR- AFIB/AFLUTTER. BP STABLE. BT+ HYPOACTIVE. OG WITH TUBE FEEDING NEPRO AT 25 ML/HR WITH H20 240 ML Q4HR. NORRIS CATH PATENT DRAINING CLEAR YELLOW URINE. FLEXI SEAL DRAINING GREEN LIQUID. PICC LINE TO LEFT UPPER ARM WITH PROPOFOL INFUSING. BILAT SOFT WRIST RESTRAINTS ON. RIGHT GROIN WITH BRUISING, NO HEMATOMA OR BLEEDING NOTED.
--- NOTE | 2019-01-19 19:41 | NUR ---
1800: PT STATUS REMAINS UNCHANGED, AT BEDSIDE. VSS, HR UP AT TIMES UP TO 100 AFLUTTER, MOSTLY REMAINS 80'S - 90'S, OTHER VSS. OCCASIONAL COUGH, THICK WHITE SPUTUM SUCTIONED FROM ETT TUBE. 1900: VENT SETTINGS UNCHANGED, PROPOFOL INFUSING AT 25MCG/KG/MIN, REPORT TO ONCOMING SHIFT.
[2019-01-20 03:36] LABS: BASOPHILS ABSOLUTE AUTO 0.08 K/mm3 (0.00-0.23); BASOPHILS PERCENT AUTO 1 % (0-2); EOSINOPHILS ABSOLUTE AUTO 0.23 K/mm3 (0.00-0.68); EOSINOPHILS PERCENT AUTO 2 % (0-6); Hematocrit 29.1 % (37.0-53.0); Hemoglobin 9.2 g/dL (13.5-17.5); IMMATURE GRAN ABSOLUTE AUTO 0.09 K/mm3 (0.00-0.10); IMMATURE GRAN PERCENT AUTO 1 % (0-1); LYMPHOCYTES ABSOLUTE AUTO 1.61 K/mm3 (0.84-5.20); LYMPHOCYTES PERCENT AUTO 14 % (21-46); MONOCYTES ABSOLUTE AUTO 0.79 K/mm3 (0.16-1.47); MONOCYTES PERCENT AUTO 7 % (4-13); Mean Corpuscular HGB 30.6 pg (26.0-34.0); Mean Corpuscular HGB Conc 31.6 g/dL (31.5-36.5); Mean Corpuscular Volume 97 fL (80-100); Mean Platelet Volume 11.1 fL (9.1-12.4); NEUTROPHILS ABSOLUTE AUTO 8.79 K/mm3 (1.96-9.15); NEUTROPHILS PERCENT AUTO 76 % (41-73); Platelet Count 343 K/mm3 (150-400); RDW Coefficient Variation 14.1 % (11.7-14.2); RDW Standard Deviation 49.3 fL (35.1-46.3); Red Blood Cell Count 3.01 M/mm3 (4.30-5.90); White Blood Cell Count 11.59 K/mm3 (4.00-11.30)
[2019-01-20 03:50] LABS: Albumin, Blood 2.9 g/dL (3.4-5.0); Anion Gap 6 mmol/L (6-16); Blood Urea Nitrogen 38 mg/dL (8-24); Bun/Creatinine Ratio 23.3 (12.0-20.0); CO2, Blood 27 mmol/L (21-32); Calcium, Blood 8.4 mg/dL (8.5-10.1); Chloride, Blood 112 mmol/L (98-108); Creatinine, Blood 1.63 mg/dL (0.60-1.20); Glomerular Filtration Rate 45 (60-); Glucose, Blood 125 mg/dL (70-99); Magnesium, Blood 1.7 mg/dL (1.6-2.4); Phosphorus, Blood 3.3 mg/dL (2.5-4.9); Potassium, Blood 3.4 mmol/L (3.5-5.5); Sodium, Blood 145 mmol/L (136-145)
[2019-01-20 03:58] LABS: Prothrombin Time Results 56.2 Sec (9.7-11.5)
[2019-01-20 04:01] LABS: International Normalized Ratio 6.26
--- NOTE | 2019-01-20 06:39 | NUR ---
SHIFT SUMMARY PT CONT INTUBATED AND [facility]. NO VENT CHANGES DURING THE NIGHT. FREQUENT SUCTIONING OF THE ET TUBE WITH THIN CLEAR SECRETIONS. POSSIBLE CHANGE TO COMFORT CARE THIS AM. PROPOFOL INCREASED TO 30 MCQ/KG/MIN DUE TO FREQUENT COUGHING. VSS. REPORT TO ON COMING NURSE
--- NOTE | 2019-01-20 11:36 | NUR ---
0730: CARE ASSUMED, ASSESSMENT COMPLETED. VENT SETTINGS AC 12 Vt 450, PEEP 5, FIO2 25%, RR 12, SPO2 HIGH 90'S, Vt 400'S - 500, OTHER VSS. PT RESPONDS TO PAIN WITH GRIMACING, DOES NOT ATTEMPT TO REMOVE PAINFUL STIMULUS. PROPOFOL INFUSING AT 30MCG/KG/MIN, NEPRO AT 25ML/HR PER ORDERS. 0900: DR. JUAREZ IN TO SEE PT, SEDATION VACATION DONE, PT BECAME AGITATED AND HYPERTENSIVE, TURNING HEAD BACK AND FORTH. OPENS EYES BUT DOES NOT TRACK OR FOLLOW COMMANDS OFF OF SEDATION, RESPONDS ONLY TO PAIN. PROPOFOL RESUMED AT 30MCG/KG/MIN. 1000: PT REPOSITIONED, VSS. 1140: PT'S AND TWO SONS AT BEDSIDE, STATE THEY ARE READY FOR EXTUBATION. DR. JUAREZ AND CHAPLAIN ELISEO AT BEDSIDE TO SPEAK WITH FAMILY.
--- NOTE | 2019-01-20 12:50 | NUR ---
1200: EXTUBATION AND COMFORT CARE ORDERS RECEIVED, RT NOTIFIED. 1229: OGT DC'D. 1231: PT EXTUBATED, ORAL SUCTIONING COMPLETED. PROPOFOL AND CARDIAC MONITORING DC'D AT THIS TIME. PT REPOSITIONED IN BED, O2 ON AT 4L/NC FOR COMFORT, WILL CONTINUE TO MONITOR, REPOSITION, AND MEDICATE NEEDED FOR DISCOMFORT. PT'S AND SONS REMAIN AT BEDSIDE.
--- NOTE | 2019-01-20 14:24 | NUR ---
1355: PT TURNING HEAD BACK AND FORTH AND COUGHING. ORAL SECRETIONS SUCTIONED, ROXANOL AND ATROPINE ADMINISTERED FOR COMFORT. REMAINS AT BEDSIDE. PT REPOSITIONED.
--- NOTE | 2019-01-20 16:29 | NUR ---
Spiritual care visit conducted. I met with family and they each shared their own stories of how they are coping. I normalized their experience and provided emotional support. THey responded well. Edna stated that my time with them was "very helpful."
--- NOTE | 2019-01-20 16:49 | NUR ---
Spiritual Care Visit: Provided prayer with family before extubation. Family tearful, but appropriate. Cameron appears comfortable and well cared-for by nursing. [facility] [employer] will remain available.
--- NOTE | 2019-01-20 17:48 | NUR ---
1740: REPORT TO ARELIS PT TO ROOM 333 AT THIS TIME.
--- NOTE | 2019-01-20 17:50 | NUR ---
1630: PT BECAME RESTLESS AGAIN, TURNING HEAD BACK AND FORTH, COUGHING, RR 36. MEDICATED WITH ROXANOL AND ATIVAN. IS NOW RESTING QUIETLY WITH EYES OPEN, RR 32.
--- NOTE | 2019-01-20 23:59 | NUR ---
medicated pt for suspected pain with 1 mg iv dilaudid with helpful effect. He was noisy and now resting quietly
--- NOTE | 2019-01-21 06:51 | NUR ---
68 YEAR OLD MALE WHO CODED AND WAS PLACED ON VENT FOR 2 WEEKS WAS EXTUBATED AND ON 2 L NC . PT DOES NOT TRAC WITH EYES AND UNABLE TO SPECK CLEARLY. HE ATTEMPTS TO HUMM AND DID SAY YES SEVERAL TIMES. haD ATIVAN PRIOR TO DAY SHIFT LEAVING AND HAD DILAUDID 1 MG IV WITH GOOD RELIEF OF S/SX PAIN. Britt AND RECTAL TUBE PATENT
--- NOTE | 2019-01-21 19:15 | NUR ---
SHIFT SUMMARY- PT RESPONDS TO VERBAL STIMULI. PT MOANING AND GRIMACING T/O SHIFT. MEDS GIVEN PER EMAR. RESP E/U ON RA. NORRIS AND RECTAL TUBE PATENT AND DRAINING. TURNS Q2H. PT'S SON IN TO VISIT THIS AM. PT'S IN TO VISIT THIS PM. NO OTHER SIGNIFICANT CHANGES THIS SHIFT.
--- NOTE | 2019-01-21 23:35 | NUR ---
COMFORT CARE UPDATE PT IS CALLING OUT, UNCOMPREHENSIBLE SOUNDS. PT FACE IS TENSE. ADMINISTERED 2MG ATIVAN IV c NO RELIEF, ADMINISTERED ADDIOTIONAL 1 MG ATIVAN IV TO REACH TEHRAPEUTIC EFFECT. PT IS NOT TRACKING c EYES, STICKS TONGUE OUT AND MAKES NOISES ONLY.
--- NOTE | 2019-01-21 23:52 | NUR ---
CONT TO BE RESTLESS, WINCING, YELLING OUT. MEDICATED c 1MG DILAUDID. PT IS RESTING AT THIS TIME.
--- NOTE | 2019-01-22 03:47 | NUR ---
COMFORT CARE PATIENT SLEEPING SINCE 0000, DOES NOT APPEAR TO BE IN ANY DISTRESS BASED ON BODY LANGUAGE, FACIAL CUES, OR RESPIRATORY DRIVE. WILL CONT TO MONITOR.
--- NOTE | 2019-01-22 04:20 | NUR ---
SHIFT SUMMARY: PT HAS BEEN OFF/ON AWAKE TONIGHT. WHEN AWAKE, PT IS MAKING SOUNDS AND STICKING OUT TONGUE. FACE APPEARS TENSE AND UPPER EXTREMITIES ARE RESTLESS. THIS RN ADMINISTERED ATIVAN AND DILAUDID PER ORDERS. PT DOES APPEAR RELAXED AND COMFORTABLE AT THIS TIME. RECTAL TUBE AND NORRIS CATH IN PLACE, PATIENT + DRAINING. PICC LINE TO KATI IS PATENT. Q2H TURNS AND REPOSITIONS. WILL CONT TO MONITOR AND PROVIDE CARE UNTIL PRESUMED BY ONCOMING RN.
--- NOTE | 2019-01-22 07:37 | NUR ---
pt appears to be sleeping at this time, appears to be comfortable
--- NOTE | 2019-01-22 10:04 | NUR ---
pt repositioned at this time appears comfortable
--- NOTE | 2019-01-22 11:35 | NUR ---
PT MOANING SHAKING HIS HEAD, GRIMICE ON HIS FACE, MEDICATED THE PT FOR PAIN, WILL CONTINUE TO MONITOR AND ASSESS FOR CHANGES
--- NOTE | 2019-01-22 14:54 | NUR ---
FAMILY AT THE BEDSIDE, THE PT APPEARS TO BE COMFORTABLE AT THIS TIME
--- NOTE | 2019-01-22 16:14 | NUR ---
PT REPOSITIONED AND MEDICATED FOR PAIN
--- NOTE | 2019-01-22 17:47 | NUR ---
pt appears to be comfortable at this time, pt was medicated for pain x2 today,
--- NOTE | 2019-01-23 06:47 | NUR ---
SHIFT SUMMARY: COMFORT CARE MEASURES MAINTAINED. PT TREATED SEVERAL TIMES FOR NONVERBAL INDICATORS OF PAIN c 1MG IV DILAUDID Q3H. PROVIDES THERAPEUTIC RELIEF. SUCTIONED SEVERAL TIMES PRN, AND ORAL CARE PRN WELL. WHEN AWAKE, PT YELLS OUT AND STICKS TONGUE OUT. PICC LINE DRESSING CHANGE COMPLETE.
--- NOTE | 2019-01-23 09:43 | NUR ---
PT DENNIS WILL MEDICATE FOR PAIN
--- NOTE | 2019-01-23 10:29 | NUR ---
PT APPEARS TO BE COMFORTABLE AT THIS TIME
--- NOTE | 2019-01-23 16:58 | NUR ---
PT WAS MOAINING THOUGH IN PAIN, THE PT WAS MEDICATED FOR PAIN AND ANXIETY
--- NOTE | 2019-01-23 16:59 | NUR ---
PT APPEARS TO BE RESTING COMFORTABLY AT THIS TIME
--- NOTE | 2019-01-23 17:00 | NUR ---
PT S FAMILY IS AT THE BEDSIDE, THE PT WAS MEDICATED FOR PAIN
--- NOTE | 2019-01-23 18:26 | NUR ---
PT MEDICATED FOR PAIN, FAMILY AT THE BEDSIDE
--- NOTE | 2019-01-23 18:27 | NUR ---
PT APPEARS TO BE RESTING COMFORTABLY AT THIS TIME, FAMILY WASM IN TO SEE THE PT TODAY, THE PT WAS MEDICATED FOR PAIN T/O THE SHIFT AND FOR ANXIETY X1, CALL LIGHT IN REACH, BED IN THE LOW POSITION
--- NOTE | 2019-01-24 02:25 | NUR ---
PT APPEARS TO BE RESTING WELL AT THIS TIME. NO NONVERBAL INDICATORS OF PAIN OR DISCOMFORT. WILL CONT TO MONITOR.
--- NOTE | 2019-01-24 06:42 | NUR ---
PT RESTLESS, CALLING OUT/MOANING, FAICLA GRIMACES. TREATING FOR PAIN AND ANXIETY c DILAUDID 1 MG IV AND ATIVAN 2 MG IV. WILL CONT TO MONITOR.
--- NOTE | 2019-01-24 07:48 | NUR ---
SHIFT SUMMARY COMFORT MEASURES MAINTAINED. ADMINISTERED FOR PAIN AND ANXIETY PER EMAR AND PATIENT NEEDS. RECTAL TUBE PATENT AND DRAINING c LOW OUT PUT. NORRIS HAS ADEQUATE NORMAL OUTPUT. PT NOT DIAPHORETIC THIS SHIFT, FAN BLOWING TOWARDS PT FOR COMFORT. PICC LINE KATI USED FOR ALL FUEL CELL BINDER AND PATENT. WILL CONT TO MONITOR AND PROVIDE CARE UNTIL PRESUMED BY ONCOMING RN.
--- NOTE | 2019-01-24 10:13 | NUR ---
Pt visit this AM. Pt is resting in bed upon arrival and appears comfortable. FLACC score is 0/10. Offered gentle voice and gentle touch and Pt remain with his eyes closed. Spoke with Pt's bedside nurse Hannah and she reports no concerns at this time. Palliative Care will remain available for symptom management.
--- NOTE | 2019-01-24 18:20 | NUR ---
TURNED Q 2 HOURS. NORRIS PATENT DRAINING TO GRAVITY. RECTAL TUBE IN. MEDICATED FOR PAIN AND ANXIETY WITH GOOD RESULTS. IV PATENT. WILL CONTINUE TO MONITOR.
--- NOTE | 2019-01-25 05:26 | NUR ---
SHIFT SUMMARY NO ACUTE CHANGES TO PRESENT THIS SHIFT. PT RESTING QUIETLY THRU OUT THE NIGHT. MEDICATED PER EMAR WHEN PT WOULD BECOME RESTLESS AND MOAN. ORAL SUCTION NEEDED. REMAINS ON COMFORT MEASURES. RECTAL TUBE AND NORRIS CATH; PATENT. PT TO GO TO [facility] AT D/C. PT OPENS EYES, BUT DOES NOT COMMUNICATE. REPOSITIONED FOR COMFORT; PT DOES NOT ASSIST. WILL MONITOR.
--- NOTE | 2019-01-25 10:16 | NUR ---
Pt visit this AM. Pt is unresponsive with respiration 44/min with audible secretions. Pt has entered into the Actively dying stage. DRAFTER (CAD) ELECTRONIC reports plan to give bed bath. Spoke with Pt's bedside nurse Anjali regarding original plan for Pt to D/C to [facility] with hospice. Suggested Pt stay in hospital for comfort and Anjali is agreeable with this RN to request this suggestion from Dr Ward along with scapolomine. Anjali reports that she will offer atropine and Roxinol. Called and spoke with Dr Ward and she is agreeable for Pt to remain in the hospital and for Scopolomine. Placed order for Scopolomine per V/O from Dr Ward. Spoke with rn palliative care Alicia and she is agreeable with plan. Called family and reported Pt's current condition and plan for Pt to remain in the hospital. Edna reports she will come make a visit. Palliative Care will remain available for symptom mangement.
--- NOTE | 2019-01-25 11:32 | NUR ---
PATIENT SLEEPING. NO DISTRESS NOTED.
--- NOTE | 2019-01-25 11:39 | NUR ---
Spiritual care visit conducted. Patient is actively dying and I sat with patient's and patient's sister. I facilitated discussions centered around patient's good traits, provided grief/emotional support, listened empathically and provided prayer. Family voiced appreciation. I will continue to remain avialable to family.
--- NOTE | 2019-01-25 13:34 | NUR ---
Pt visit this afternoon. Pt is unresponsive with increased respiration rate. Pt's Edna present during visit. Offered therapeutic touch for Pt and expresses appreciation. Engaged in discussion with Edna outside of Pt's room and educated on actively dying stage with possible symptoms Pt may experienced. Reassured Edna of doing a wonderful job of being at Pt's bedside and talking with Pt. Edna tearful at times and this RN offered emotional support. Edna reports family have chosen [facility]. Edna reports no other concerns. Spoke with Pt's bedside nurse Anjali regarding increased respiration rate. Anjali reports that she will offer Roxinol for air hunger. No other concerns reported by Anjali. Palliative Care will remain available.
--- NOTE | 2019-01-25 18:39 | NUR ---
PATIENT REPOSITIONED. NO DISTRESS NOTED. FAMILY AT BEDSIDE
--- NOTE | 2019-01-25 18:40 | NUR ---
NO ACUTE CHANGES. PATIENT HAS HAD FAMILY AT BEDSIDE THROUGH OUT THE DAY. MEDICATIONS ORDERED AND GIVEN FOR SECREATIONS.
--- NOTE | 2019-01-26 00:21 | NUR ---
1914 FAMILY IN AT BS. PT LYING TO R SIDE, RESP RAPID AND SHALLOW. PT'S AND FAMILY DECLINED NEEDING ANYTHING FOR PT. REPORTED THAT PT HAD JUST BEEN MEDICATED AND REPOSITIONED A FEW MINUTES EARLIER. 2104 PT'S CALLED TO REPORT PT STARTING TO PASS. PT PASSED WHEN ENTERING . JOE DANCING MASTER, [place] NOTIFIED. [employer] INSURANCE ASSESSOR. FAMILY REQUESTED [facility]. FAMILY REMAINED HERE UNTIL [facility] STAFF CAME TO REMOVE BODY AT 2350.
== END 2019-01-25 23:50 | DRG 981 ==
LOC: MHTC 10:27 → ICUE 15:11 → ICUW 17:33 → MEDS 17:33 → ICUE 17:33 → MHTC 17:33 → ICUE 23:35 → MEDS 01-20 17:35
PROVIDERS: Family Medicine; Internal Medicine Cardiovascular Disease; Internal Medicine Critical Care Medicine; Internal Medicine Nephrology; Internal Medicine Pulmonary Disease; Nurse Practitioner Acute Care; Pharmacist; ADMIT Hospitalist
PROC: 4A023N7 Measurement of Cardiac Sampling and Pressure, Left Heart, Percutaneous Approach (ICD-10-PCS; principal; 2019-01-06)
PROC: 5A02110 Assistance with Cardiac Output using Balloon Pump, Intermittent (ICD-10-PCS; 2019-01-06)
PROC: 027034Z Dilation of Coronary Artery, One Artery with Drug-eluting Intraluminal Device, Percutaneous Approach (ICD-10-PCS; 2019-01-06)
PROC: B211YZZ Fluoroscopy of Multiple Coronary Arteries using Other Contrast (ICD-10-PCS; 2019-01-06)
PROC: 0BH17EZ Insertion of Endotracheal Airway into Trachea, Via Natural or Artificial Opening (ICD-10-PCS; 2019-01-06)
PROC: 5A1955Z Respiratory Ventilation, Greater than 96 Consecutive Hours (ICD-10-PCS; 2019-01-06)
PROC: 30233N1 Transfusion of Nonautologous Red Blood Cells into Peripheral Vein, Percutaneous Approach (ICD-10-PCS; 2019-01-09)
DX: J95.822 Acute and chronic postprocedural respiratory failure (principal); G92 Toxic encephalopathy; G93.1 Anoxic brain damage, not elsewhere classified; E87.2 Acidosis; N17.9 Acute kidney failure, unspecified; D68.32 Hemorrhagic disorder due to extrinsic circulating anticoagulants; E78.5 Hyperlipidemia, unspecified; R07.89 Other chest pain; Z51.5 Encounter for palliative care; I25.10 Atherosclerotic heart disease of native coronary artery without angina pectoris; I25.82 Chronic total occlusion of coronary artery; R57.0 Cardiogenic shock; I46.9 Cardiac arrest, cause unspecified; I25.5 Ischemic cardiomyopathy; Z79.01 Long term (current) use of anticoagulants; I95.9 Hypotension, unspecified; D64.9 Anemia, unspecified; D69.6 Thrombocytopenia, unspecified; B96.89 Other specified bacterial agents as the cause of diseases classified elsewhere; E87.6 Hypokalemia; E83.39 Other disorders of phosphorus metabolism; Z66 Do not resuscitate; I48.2 Chronic atrial fibrillation; T45.515A Adverse effect of anticoagulants, initial encounter
CPT/HCPCS: 31500; 31720; 33210; 33967; 36415; 36430; 36569; 36600; 51703; 70450; 71045; 76770; 80048; 80053; 80069; 81001; 82248; 82330; 82803; 82947; 83605; 83735; 84100; 84132; 84295; 84443; 84484; 85014; 85018; 85025; 85347; 85610; 85730; 86850; 86900; 86901; 86923; 87070; 87077; 87186; 87205; 93005; 93010; 93458; 94002; 94003; 94640; 95819; 99152; 99153; C1751; C1760; C1769; C1874; C1887; C1894; C8929; C9113; C9600; J0171; J0282; J0330; J0360; J0461; J0610; J0690; J0696; J0881; J1170; J1644; J1650; J1940; J2001; J2060; J2250; J2270; J2704; J3010; J3475; J3480; J7030; J7040; J7042; J7050; J7060; J7120; P9016; P9046; Q9957; Q9967